=== PATIENT | female | born 1990 | race Caucasian/White ===

== ENCOUNTER → 2018-09-04 15:38 | Outpatient (CLI) | payer OTHER, SELFPAY ==
[2013-10-05 21:06] VITALS: BMI 25.6
[2018-09-04 17:32] LABS: Internal QC Validated? YES +Cl - CLEAR BKGD; Pregnancy, Urine Negative Negative
--- OUTSIDE RECORDS SUMMARY | 2018-10-17 14:19 | XMS RPT_ITS | Clinical Summary ---
:1990 Author Organization [facility], [facility] Address [facility] [place] [address] Phone Care Team Providers Name Role Phone Dossi DC, Waleska Griffith Unavailable Conditions or Problems Problem Name Problem Onset Status Entry Provider Comment Standard Annotate Code Date Date Description Segmental and [id number] Active Waleska B Segmental and somatic (SNOMED CT) / Dossi DC somatic dysfunction dysfunction of sacral region Segmental and [id number] Active Waleska B Segmental and somatic (SNOMED CT) / Dossi DC somatic dysfunction dysfunction of lumbar region Segmental and [id number] Active Waleska B Segmental and somatic (SNOMED CT) / Dossi DC somatic dysfunction dysfunction of thoracic region Lumbar [id number] Active Waleska B Lumbar radiculopathy (SNOMED CT) / Dossi DC radiculopathy , right Medications Medication Instructions Start Date Stop Date Generic Name NDC Provider Observed no known medications at Medications Administered No information available. Allergies, Adverse Reactions, Alerts Observed no known allergies at Results Date Name Value Unit Range Flag Description Office Visit: Spine Visit- Neck & LBP MEDS REVIEW Done Documentation of current medications (procedure) NKMED T Documentation of current medications (procedure) Plan of Care Type Date Detail Pending order Follow up Appt 2x/week Pending order Follow up Appt 2x/week Pending order Follow up Appt 2x/week Procedures Code Procedure Name Date Entry Date CPT-22604 Chiropractic manipulative treatment (CMT); spinal, 3-4 regions CPT-25623 Electrical stimulation (unattended) CPT-74904 Traction, mechanical CPT-39442 Chiropractic manipulative treatment (CMT); spinal, 3-4 regions CPT-04063 Electrical stimulation (unattended) CPT-96430 Traction, mechanical CPT-33956 Chiropractic manipulative treatment (CMT); spinal, 3-4 regions CPT-35454 Electrical stimulation (unattended) CPT-39729 Traction, mechanical CPT-75808 Chiropractic manipulative treatment (CMT); spinal, 3-4 regions CPT-12191 Electrical stimulation (unattended) CPT-06852 Traction, mechanical CPT-98836 Lumbosacral; minimum of 4 views (Global charge) Vital Signs No information available.
--- OUTSIDE RECORDS SUMMARY | 2018-10-17 14:19 | XMS RPT_ITS ---
:1990 Author Organization [facility] Care Team Providers Name Role Phone SUNITHA PEREZ (DAMASO) Attending Unavailable MICHELL SANTAMARIA Attending Unavailable Maya Ibarra PA-C Attending Unavailable Maya Ibarra PA-C Referring Unavailable Sierra Fang Primary Care Unavailable PROBLEMS PROBLEMS DATE TYPE CONDITION / CODE ATTENDING STATUS SOURCE 09/04/2018 Unknown L70.0 - Acne Maya Ibarra PA-C Active [place] [facility] / Community L70.0(ICD-10) Hospital Repository PROCEDURES PROCEDURES No Procedure Records FoundRESULTS RESULTS ,URINE Collected: 09/04/2018 Status: F Source: [place] 3:46 PM [facility] REPOSITORY TYPE CODE TESTS RESULT OUT OF REFERENCE UNITS RANGE LAB L400.8000 Negative Normal HCGUQUAL Negative Result Comment: Very dilute urine specimens, as indicated by a low specific gravity, may not contain sales representative trainee levels of hCG. If is still suspected, a first morning urine specimen should be collected 48 hours later and tested. Performed By: #### [id number] #### [facility] [address] [place], [address] Observed: 12/11/2017 Status: F Source: [place] URINE CULTURE 3:03 PM [facility] REPOSITORY Sp. Request/Comment: - Specimen received in preservative Culture Result - 10,000 - <50,000 CFU/ml Escherichia coli --> ABNORMAL ALERT ORGANISM: Escherichia coli METHOD: Minimum inhibitory concentration(Vitek) Antibiotic Interp ALBA Status Ampicillin RESISTANT >=32 F Gentamicin SUSCEPTIBLE <=1 F Trimeth sulfameth RESISTANT >=320 F Cefazolin SUSCEPTIBLE <=4 F CLSI breakpoints for therapy of uncomplicated UTI's due to E.coli, K.pneumoniae, and P.mirabilis were applied and may be used to predict the activity of oral agents(cefaclor, cefdinir, cefpodoxime, cefp rozil, cefuroxime, cephalexin, loracarbef). Ciprofloxacin SUSCEPTIBLE 0.5 F Nitrofurantoin SUSCEPTIBLE <=16 F Cefepime SUSCEPTIBLE <=1 F Piperacillin/Tazobac SUSCEPTIBLE <=4 F Ampicillin Sulbact SUSCEPTIBLE 4 F Ceftriaxone SUSCEPTIBLE <=1 F Meropenem SUSCEPTIBLE <=0.25 F Ertapenem SUSCEPTIBLE <=0.5 F Performed By: #### URCUL #### [facility] [address] [place], [place] [address] PROGRESS Observed: 12/11/2017 Status: COMPLETED Source: [place] 2:47 PM [facility] REPOSITORY HNO ID: [id number] Author: Bee Cervantes Service: (none) Author Type: Nurse Practitioner Type: Progress Notes Filed: 12/11/2017 3:37 PM Note Text: Subjective HPI HPI Kody Chaney is a 27 year old female who presents today for CC of urinary burning, frequency. This started 2 weeks ago. Has tried azo. Symptoms are worsened by nothing. Risk factors hx of uti. Denies possibility of being . Review of Systems Constitutional: Negative for chills, fever and weight loss. Respiratory: Negative for cough, shortness of breath and wheezing. Cardiovascular: Negative for chest pain and palpitations. Gastrointestinal: Negative for abdominal pain, blood in stool, constipation, diarrhea, heartburn, melena, nausea and vomiting. Genitourinary: Positive for dysuria, frequency and urgency. Negative for flank pain and hematuria. Musculoskeletal: Positive for myalgias. Objective Physical Exam Constitutional: She is well-developed, well-nourished, and in no distress. Non-toxic appearance. She does not have a sickly appearance. No distress. Cardiovascular: Normal rate, regular rhythm and normal heart sounds. Pulmonary/Chest: Effort normal and breath sounds normal. Abdominal: Soft. Normal appearance and bowel sounds are normal. There is no hepatosplenomegaly. There is no tenderness. There is no CVA tenderness. Skin: Skin is warm and dry. BP 120/74 Pulse 72 Temp 37.1 ?C (98.8 ?F) (Tympanic) Resp 16 Wt 70.8 kg (156 lb) BMI 28.53 kg/m2 .Patient presents with: Urinary Problem: urgency with a feeling of pressure X 2 weeks PAST MEDICAL HISTORY Diagnosis Date - PMH - PAST MEDICAL HISTORY OF Left ankle sprain in seventh grade. - PMH - PAST MEDICAL HISTORY OF Left wrist sprain in seventh grade. PAST SURGICAL HISTORY Procedure Laterality Date - NONE ALLERGIES Vicodin [Hydrocodone-Acetaminophen]; Metal [Other] MEDICATIONS sulfamethoxazole-trimethoprim (BACTRIM DS) 800-160 mg per tablet Take 1 tablet by mouth twice daily for 5 days. Drospirenone-Ethinyl Estradiol (LORYNA, 28,) 3-0.02 mg per tablet Take 1 tablet by mouth once daily. ibuprofen (MOTRIN) 800 mg tablet Take 1 tablet by mouth every 8 hours as needed for Pain. Take with food. fexofenadine (ZEV) 180 mg tablet Take 1 tablet by mouth once daily. LORATADINE (CLARITIN ORAL) Take by mouth. FAMILY HISTORY Problem Relation Age of Onset - Heart Maternal Grandmother - Stroke Maternal Grandmother - Emphysema Maternal Grandfather - Hypertension Maternal Grandfather - Lipids Maternal Grandfather - Brain Aneurysm [OTHER] Paternal Grandmother - Uterine Fibroids [OTHER] Mother - Diabetes Father - Hypertension Father - GI Father Social History Substance Use Topics - Smoking status: Never Smoker - Smokeless tobacco: Never Used - Alcohol use No ASSESSMENT/PLAN: 1. Urinary urgency - ICD9: 788.63, ICD10: R39.15 Ua pos for leuks,prot, hem Will treat with bactrim for 5 days, longer duration d/t s/s for 2 weeks - URINE CULTURE - UA DIP B/O - SULFAMETHOXAZOLE 800 MG-TRIMETHOPRIM 160 MG TABLET Prescription instructions reviewed with patient as applicable. Patient advised if symptoms do not improve or if symptoms worsen sooner, to contact the office for further evaluation by their primary care physician. Potential red flag symptoms discussed with the patient. Reviewed appropriate action plan to take if red flag symptoms occur. Patient agreeable to treatment plan. JASON Vann Observed: 12/11/2017 Status: COMPLETED Source: [place] 2:30 PM [facility] REPOSITORY Office Visit (WSTR) KODY CHANEY ([id number]) 1990 F Date Time Provider Department 12/11/17 2:30 PM BEE CERVANTES (JASON) [facility] During your visit today, we recorded the following information about you: Temperature Pulse Respiration Blood pressure 98.8 degrees 72/minute 16/minute 120/74 Weight 70.8 kg Bee Cervantes CNP 12/11/2017 3:37 PM Signed Subjective HPI HPI Kody Chaney is a 27 year old female who presents today for CC of urinary burning, frequency. This started 2 weeks ago. Has tried azo. Symptoms are worsened by nothing. Risk factors hx of uti. Denies possibility of being . Review of Systems Constitutional: Negative for chills, fever and weight loss. Respiratory: Negative for cough, shortness of breath and wheezing. Cardiovascular: Negative for chest pain and palpitations. Gastrointestinal: Negative for abdominal pain, blood in stool, constipation, diarrhea, heartburn, melena, nausea and vomiting. Genitourinary: Positive for dysuria, frequency and urgency. Negative for flank pain and hematuria. Musculoskeletal: Positive for myalgias. Objective Physical Exam Constitutional: She is well-developed, well-nourished, and in no distress. Non-toxic appearance. She does not have a sickly appearance. No distress. Cardiovascular: Normal rate, regular rhythm and normal heart sounds. Pulmonary/Chest: Effort normal and breath sounds normal. Abdominal: Soft. Normal appearance and bowel sounds are normal. There is no hepatosplenomegaly. There is no tenderness. There is no CVA tenderness. Skin: Skin is warm and dry. BP 120/74 Pulse 72 Temp 37.1 ?C (98.8 ?F) (Tympanic) Resp 16 Wt 70.8 kg (156 lb) BMI 28.53 kg/m2 .Patient presents with: Urinary Problem: urgency with a feeling of pressure X 2 weeks PAST MEDICAL HISTORY Diagnosis Date - PMH - PAST MEDICAL HISTORY OF Left ankle sprain in seventh grade. - PMH - PAST MEDICAL HISTORY OF Left wrist sprain in seventh grade. PAST SURGICAL HISTORY Procedure Laterality Date - NONE ALLERGIES Vicodin [Hydrocodone-Acetaminophen]; Metal [Other] MEDICATIONS sulfamethoxazole-trimethoprim (BACTRIM DS) 800-160 mg per tablet Take 1 tablet by mouth twice daily for 5 days. Drospirenone-Ethinyl Estradiol (LORYNA, 28,) 3-0.02 mg per tablet Take 1 tablet by mouth once daily. ibuprofen (MOTRIN) 800 mg tablet Take 1 tablet by mouth every 8 hours as needed for Pain. Take with food. fexofenadine (ZEV) 180 mg tablet Take 1 tablet by mouth once daily. LORATADINE (CLARITIN ORAL) Take by mouth. FAMILY HISTORY Problem Relation Age of Onset - Heart Maternal Grandmother - Stroke Maternal Grandmother - Emphysema Maternal Grandfather - Hypertension Maternal Grandfather - Lipids Maternal Grandfather - Brain Aneurysm [OTHER] Paternal Grandmother - Uterine Fibroids [OTHER] Mother - Diabetes Father - Hypertension Father - GI Father Social History Substance Use Topics - Smoking status: Never Smoker - Smokeless tobacco: Never Used - Alcohol use No ASSESSMENT/PLAN: 1. Urinary urgency - ICD9: 788.63, ICD10: R39.15 Ua pos for leuks,prot, hem Will treat with bactrim for 5 days, longer duration d/t s/s for 2 weeks - URINE CULTURE - UA DIP B/O - SULFAMETHOXAZOLE 800 MG-TRIMETHOPRIM 160 MG TABLET Prescription instructions reviewed with patient as applicable. Patient advised if symptoms do not improve or if symptoms worsen sooner, to contact the office for further evaluation by their primary care physician. Potential red flag symptoms discussed with the patient. Reviewed appropriate action plan to take if red flag symptoms occur. Patient agreeable to treatment plan. JASON Vann CNP 12/11/2017 3:04 PM Signed URINARY TRACT INFECTION GENERAL INFORMATION: A urinary tract infection (UTI) is an infection of the bladder or kidneys. A bladder infection, called cystitis, is the more common type. If the infection travels up to the kidneys, it is called pyelonephritis. This can be more serious. UTIs are a common problem in women. Having sexual relations can leave a woman more susceptible to developing a UTI, but it is not sexually transmitted like gonorrhea. Some women have a problem with recurrent UTIs. INSTRUCTIONS: 1. Your doctor prescribed an antibiotic to treat the UTI. Take exactly as directed. Be sure to take all the medication prescribed, even if your symptoms disappear. If you stop treatment early, the infection may not be fully treated and the symptoms could come back again. 2. Get plenty of rest. You may take acetaminophen for fever and aches. 3. Drink 6 to 8 glasses of fluids, especially water, every day. This helps wash out germs from your urinary tract. Cranberry juice or other sources of vitamin C are also good for you. 4. Urinate often, as soon as you feel the urge. Empty your bladder completely. Urinate before and after you have sex. 5. Always wipe from front to back after going to the bathroom. This pushes germs away from your bladder, rather than towards it. 6. Showers are better than baths, and you should wash the genital area daily. Avoid bubble bath or bath oils if you do take a bath. 7. Wear underwear and pantyhose with a cotton crotch. CONTACT YOUR DOCTOR: 1. You have a temperature over 102F (38.8C) after 48 hours on medication. 2. You notice blood in your urine. 3. Your symptoms don't improve in 2 days. 4. You develop nausea, vomiting, diarrhea, or a rash. 5. You develop new or unexplained symptoms. These may be related to the medication you are taking. 6. Your symptoms return after you finish treatment. RETURN TO THE EMERGENCY DEPARTMENT IF: You develop vomiting and can't keep your medication or fluids down. Referring Provider: SELF [200] Allergies As of Date: 12/11/2017 Noted Allergy Reaction VICODIN (HYDROCODONE-ACETAMINOPHE*06/30/2016 14 - Other: See Comments Comments: convulsions and gi problems metal [Other] 05/09/2008 2 - Rash Date Reviewed: 12/11/2017 Reviewed by: Bee Cervantes - Fully Assessed Reason for Visit: Urinary Problem [252] Cmt: urgency with a feeling of pressure X 2 weeks Primary Visit Diagnosis:Urinary urgency [R39.15] Order(s):URINE CULTURE [SQURCUL] Order #: [id number] UA DIP B/O [[id number]] Order #: [id number] sulfamethoxazole-trimethoprim (BACTRIM DS) 800-160 mg per tabletTake 1 tablet by mouth twice daily for 5 days.Disp: 10 tabletRfl: 0 Prescriptions as of 12/11/2017 Sig: SULFAMETHOXAZOLE 800 MG-TRIME* Take 1 tablet by mouth twice * DROSPIRENONE-ETHINYL ESTRADIO* Take 1 tablet by mouth once d* IBUPROFEN 800 MG TABLET Take 1 tablet by mouth every * FEXOFENADINE 180 MG TABLET Take 1 tablet by mouth once d* CLARITIN ORAL Take by mouth. Medication notes this encounter IBUPROFEN 800 MG TABLET >> Dasha Tee LPN 12/11/2017 2:35 PM >> DASHA TEE LPN [place] Dec 11, 2017 2:35 PM Not taking FEXOFENADINE 180 MG TABLET >> Dasha Tee ASSISTANT ADMINISTRATOR 12/11/2017 2:36 PM >> DASHA TEE LPN [place] Dec 11, 2017 2:36 PM Not taking CLARITIN ORAL >> Dasha Tee LPN 12/11/2017 2:35 PM >> DASHA TEE LPN [place] Dec 11, 2017 2:35 PM PRN Problem List As Of Date: 12/11/2017 (None) Other instructions from your clinician: URINARY TRACT INFECTION GENERAL INFORMATION: A urinary tract infection (UTI) is an infection of the bladder or kidneys. A bladder infection, called cystitis, is the more common type. If the infection travels up to the kidneys, it is called pyelonephritis. This can be more serious. UTIs are a common problem in women. Having sexual relations can leave a woman more susceptible to developing a UTI, but it is not sexually transmitted like gonorrhea. Some women have a problem with recurrent UTIs. INSTRUCTIONS: 1. Your doctor prescribed an antibiotic to treat the UTI. Take exactly as directed. Be sure to take all the medication prescribed, even if your symptoms disappear. If you stop treatment early, the infection may not be fully treated and the symptoms could come back again. 2. Get plenty of rest. You may take acetaminophen for fever and aches. 3. Drink 6 to 8 glasses of fluids, especially water, every day. This helps wash out germs from your urinary tract. Cranberry juice or other sources of vitamin C are also good for you. 4. Urinate often, as soon as you feel the urge. Empty your bladder completely. Urinate before and after you have sex. 5. Always wipe from front to back after going to the bathroom. This pushes germs away from your bladder, rather than towards it. 6. Showers are better than baths, and you should wash the genital area daily. Avoid bubble bath or bath oils if you do take a bath. 7. Wear underwear and pantyhose with a cotton crotch. CONTACT YOUR DOCTOR: 1. You have a temperature over 102F (38.8C) after 48 hours on medication. 2. You notice blood in your urine. 3. Your symptoms don't improve in 2 days. 4. You develop nausea, vomiting, diarrhea, or a rash. 5. You develop new or unexplained symptoms. These may be related to the medication you are taking. 6. Your symptoms return after you finish treatment. RETURN TO THE EMERGENCY DEPARTMENT IF: You develop vomiting and can't keep your medication or fluids down. Prescriptions ordered this encounter Disp Refills Start End SULFAMETHOXAZOLE 800 MG-TRIMETHOPRIM* 10 t* 0 12/11/2017 12/16/2017 Route: ORAL Sig: Take 1 tablet by mouth twice daily for 5 days. Encounter Status:Closed by BEE CERVANTES CNP on 12/11/17 PROGRESS Observed: 10/21/2017 Status: COMPLETED Source: [place] 4:06 PM [facility] REPOSITORY [facility] ID: [id number] Author: Michell Santamaria Service: (none) Author Type: Physician Type: Progress Notes Filed: 10/21/2017 4:38 PM Note Text: Reason for Visit Patient presents with: [facility] Kody Chaney is a 27 year old female who presents here today for Above Complaints.. Health Maintenance TETANUS HPI Recently she had some jaw trouble , unclear etiology, was on abx for a week and taking otc pain medication, It is better but still some pain present. From a 10 her pain is a 1/2. During last fall she had hives and welts and there really cause not determined but she is doing better now, no issue. Takes loryna well - takes it daily No problem-specific Assessment AND Plan notes found for this encounter. PAST MEDICAL HISTORY Diagnosis Date - PMH - PAST MEDICAL HISTORY OF Left ankle sprain in seventh grade. - PMH - PAST MEDICAL HISTORY OF Left wrist sprain in seventh grade. PAST SURGICAL HISTORY Procedure Laterality Date - NONE FAMILY HISTORY Problem Relation Age of Onset - Diabetes Father - Heart Maternal Grandmother - Emphysema Maternal Grandfather - Hypertension Maternal Grandfather - Lipids Maternal Grandfather - Hypertension Father - GI Father - Uterine Fibroids [Other] [OTHER] Mother - Stroke Maternal Grandmother - Brain Aneurysm [Other] [OTHER] Paternal Grandmother Social History Substance Use Topics - Smoking status: Never Smoker - Smokeless tobacco: Never Used - Alcohol use No Past medical history, appointments, medications, allergies reviewed. Pertinent Lab/Diagnostic Studies are reviewed and discussed today Current Outpatient Prescriptions: - amoxicillin-clavulanic acid (AUGMENTIN) 875-125 mg per tablet - ibuprofen (MOTRIN) 800 mg tablet - LORYNA, 28, 3-0.02 mg per tablet - LORATADINE (CLARITIN ORAL) - fexofenadine (ZEV) 180 mg tablet Review of Systems CONSTITUTIONAL: No fevers, chills night sweats, unintended weight loss CARDIOVASCULAR: No chest pain, dyspnea, palpitations, orthopnea, PND, ankle edema. PULM: No dyspnea, unexplained cough. GI: No dysphagia/odynophagia, problematic reflux, constipation, diarrhea, changes in stool habits, hematochezia, melena. : No new urinary complaints, including dysuria, gross hematuria or pyuria. NEURO: No new balance problems, peripheral weakness/paresthesias or numbness of concern. Physical Exam BP 110/70 Pulse 60 Resp 16 Ht 157.5 cm (5' 2) Wt 70.8 kg (156 lb) BMI 28.53 kg/m2 General appearance: Well appearing, alert, in no acute distress, well nourished. Skin: Skin color, texture, turgor normal, no suspicious rashes or lesions Head: Normocephalic, no masses, lesions, tenderness or abnormalities Ears: R TM - clear with good landmarks, erythematous, no mastoid tenderness, L TM - clear with good landmarks, nl light reflex, no mastoid tenderness Mouth : normal oropharyx and posterior pharynx, Masseter muscle seems a little more tense on the left than the right Eyes: Anicteric sclera. Pupils are equally round and reactive to light. Extraocular movements are intact. Lungs: Lungs clear to auscultation. No wheezing, rhonchi, rales Heart: RRR without murmur, gallop, or rubs. Extremities: No deformities, edema, skin discoloration, clubbing or cyanosis. Good capillary refill. ASSESSMENT/PLAN: 1. Jaw pain - ICD9: 784.92, ICD10: R68.84 Etiology unclear, does not seem infectious likely TMJ related to clenching, Masseter muscle seems a little more tense on the left than the right She is getting better, so complete abx course, to get back to me if she does not get better. MICHELL SANTAMARIA MD CNOV Observed: 10/21/2017 Status: COMPLETED Source: [place] 4:00 PM [facility] REPOSITORY Office Visit (INTMWS) HETALKODY ([id number]) 1990 F Date Time Provider Department 10/21/17 4:00 PM MICHELL SANTAMARIA INTM[facility] During your visit today, we recorded the following information about you: Pulse Respiration Blood pressure Weight 60/minute 16/minute 110/70 70.8 kg Height 1.575 m MICHELL SANTAMARIA MD 10/21/2017 4:38 PM Signed Reason for Visit Patient presents with: Establish Care Kody Chaney is a 27 year old female who presents here today for Above Complaints.. Health Maintenance TETANUS HPI Recently she had some jaw trouble , unclear etiology, was on abx for a week and taking otc pain medication, It is better but still some pain present. From a 10 her pain is a 1/2. During last fall she had hives and welts and there really cause not determined but she is doing better now, no issue. Takes loryna well - takes it daily No problem-specific Assessment ANDamp; Plan notes found for this encounter. PAST MEDICAL HISTORY Diagnosis Date - PMH - PAST MEDICAL HISTORY OF Left ankle sprain in seventh grade. - PMH - PAST MEDICAL HISTORY OF Left wrist sprain in seventh grade. PAST SURGICAL HISTORY Procedure Laterality Date - NONE FAMILY HISTORY Problem Relation Age of Onset - Diabetes Father - Heart Maternal Grandmother - Emphysema Maternal Grandfather - Hypertension Maternal Grandfather - Lipids Maternal Grandfather - Hypertension Father - GI Father - Uterine Fibroids [Other] [OTHER] Mother - Stroke Maternal Grandmother - Brain Aneurysm [Other] [OTHER] Paternal Grandmother Social History Substance Use Topics - Smoking status: Never Smoker - Smokeless tobacco: Never Used - Alcohol use No Past medical history, appointments, medications, allergies reviewed. Pertinent Lab/Diagnostic Studies are reviewed and discussed today Current Outpatient Prescriptions: - amoxicillin-clavulanic acid (AUGMENTIN) 875-125 mg per tablet - ibuprofen (MOTRIN) 800 mg tablet - LORYNA, 28, 3-0.02 mg per tablet - LORATADINE (CLARITIN ORAL) - fexofenadine (ZEV) 180 mg tablet Review of Systems CONSTITUTIONAL: No fevers, chills night sweats, unintended weight loss CARDIOVASCULAR: No chest pain, dyspnea, palpitations, orthopnea, PND, ankle edema. PULM: No dyspnea, unexplained cough. GI: No dysphagia/odynophagia, problematic reflux, constipation, diarrhea, changes in stool habits, hematochezia, melena. : No new urinary complaints, including dysuria, gross hematuria or pyuria. NEURO: No new balance problems, peripheral weakness/paresthesias or numbness of concern. Physical Exam BP 110/70 Pulse 60 Resp 16 Ht 157.5 cm (5' 2ANDquot;) Wt 70.8 kg (156 lb) BMI 28.53 kg/m2 General appearance: Well appearing, alert, in no acute distress, well nourished. Skin: Skin color, texture, turgor normal, no suspicious rashes or lesions Head: Normocephalic, no masses, lesions, tenderness or abnormalities Ears: R TM - clear with good landmarks, erythematous, no mastoid tenderness, L TM - clear with good landmarks, nl light reflex, no mastoid tenderness Mouth : normal oropharyx and posterior pharynx, Masseter muscle seems a little more tense on the left than the right Eyes: Anicteric sclera. Pupils are equally round and reactive to light. Extraocular movements are intact. Lungs: Lungs clear to auscultation. No wheezing, rhonchi, rales Heart: RRR without murmur, gallop, or rubs. Extremities: No deformities, edema, skin discoloration, clubbing or cyanosis. Good capillary refill. ASSESSMENT/PLAN: 1. Jaw pain - ICD9: 784.92, ICD10: R68.84 Etiology unclear, does not seem infectious likely TMJ related to clenching, Masseter muscle seems a little more tense on the left than the right She is getting better, so complete abx course, to get back to me if she does not get better. MICHELL SANTAMARIA MD Referring Provider: SELF [200] Allergies As of Date: 10/21/2017 Noted Allergy Reaction VICODIN (HYDROCODONE-ACETAMINOPHE*06/30/2016 14 - Other: See Comments Comments: convulsions and gi problems metal [Other] 05/09/2008 2 - Rash Date Reviewed: 10/21/2017 Reviewed by: Tami Sánchez Ma - Fully Assessed Reason for Visit: Establish Care [42] Primary Visit Diagnosis:Jaw pain [R68.84] Prescriptions as of 10/21/2017 Sig: AMOXICILLIN 875 MG-POTASSIUM * Take 1 tablet by mouth twice * IBUPROFEN 800 MG TABLET Take 1 tablet by mouth every * LORYNA (28) 3 MG-20 MCG TABLET TAKE 1 TABLET BY MOUTH ONCE D* CLARITIN ORAL Take by mouth. FEXOFENADINE 180 MG TABLET Take 1 tablet by mouth once d* Problem List As Of Date: 10/21/2017 (None) Encounter Status:Closed by MICHELL SANTAMARIA MD on 10/21/17 PROGRESS Observed: 10/14/2017 Status: COMPLETED Source: [place] 4:37 PM [facility] REPOSITORY [facility] ID: [id number] Author: Sunitha Perez Service: (none) Author Type: Physician Clinical Resource Nurse Type: Progress Notes Filed: 10/14/2017 6:25 PM Note Text: 10/14/2017 Patient presents with: Pain: Right jaw pain X 1 week SUBJECTIVE: This is a 27 year old that is here today for Complaint(s) of right side of the face/jaw pain x 1 week. She started valtrex left over in case it was shingles, and it has not helped. No dental pain. Pain is behind the last tooth on the bottom right side. No obvious swelling. No rash. Pain is constant. Denies fever/chills. PAST MEDICAL HISTORY Diagnosis Date - PMH - PAST MEDICAL HISTORY OF Left ankle sprain in seventh grade. - PMH - PAST MEDICAL HISTORY OF Left wrist sprain in seventh grade. ALLERGIES Vicodin [Hydrocodone-Acetaminophen]; Metal [Other] MEDICATIONS Current Outpatient Prescriptions: LORYNA, 28, 3-0.02 mg per tablet TAKE 1 TABLET BY MOUTH ONCE DAILY. fexofenadine (ZEV) 180 mg tablet Take 1 tablet by mouth once daily. LORATADINE (CLARITIN ORAL) Take by mouth. No current facility-administered medications for this visit. SOCIAL HISTORY Social History Marital status: Spouse name: Years of education: Number of children: 0 Occupational History Occupation Employer Comment Student [employer] Social History Main Topics Smoking status: Never Smoker Smokeless status: Never Used Alcohol use: No Drug use: No Sexual activity: Yes Partners with: Male control/protection: Condom REVIEW OF SYSTEMS All other reviewed and negative other than HPI. OBJECTIVE: BP 122/74 Pulse 78 Temp 37.3 ?C (99.2 ?F) (Tympanic) Resp 14 Wt 71.7 kg (158 lb) BMI 28.21 kg/m2 APPEARANCE Well appearing, alert, in no acute distress, well-hydrated, well nourished. THROAT normal, no erythema. + TTP along posterior jaw line and inside cheek. No obvious induration or fluctuance. NECK Supple, no adenopathy; thyroid symmetric, normal size, no bruits SKIN no rash FACE no pain noted with palpation of 7th CN. ASSESSMENT/PLAN: 1. Dental infection - ICD9: 522.4, ICD10: K04.7 F/u with dentist Reviewed red flags and when to seek care sooner. - AMOXICILLIN 875 MG-POTASSIUM CLAVULANATE 125 MG TABLET - IBUPROFEN 800 MG TABLET The patient indicates understanding of these issues and agrees with the plan. DAMASO BeltranOV Observed: 10/14/2017 Status: COMPLETED Source: [place] 4:15 PM [facility] REPOSITORY Office Visit (WSTR) KODY CHANEY ([id number]) 1990 F Date Time Provider Department 10/14/17 4:15 PM SUNITHA PEREZ) [facility] During your visit today, we recorded the following information about you: Temperature Pulse Respiration Blood pressure 99.2 degrees 78/minute 14/minute 122/74 Weight 71.7 kg Sunitha Perez PA-C 10/14/2017 6:25 PM Addendum 10/14/2017 Patient presents with: Pain: Right jaw pain X 1 week SUBJECTIVE: This is a 27 year old that is here today for Complaint(s) of right side of the face/jaw pain x 1 week. She started valtrex left over in case it was shingles, and it has not helped. No dental pain. Pain is behind the last tooth on the bottom right side. No obvious swelling. No rash. Pain is constant. Denies fever/chills. PAST MEDICAL HISTORY Diagnosis Date - PMH - PAST MEDICAL HISTORY OF Left ankle sprain in seventh grade. - PMH - PAST MEDICAL HISTORY OF Left wrist sprain in seventh grade. ALLERGIES Vicodin [Hydrocodone-Acetaminophen]; Metal [Other] MEDICATIONS Current Outpatient Prescriptions: LORYNA, 28, 3-0.02 mg per tablet TAKE 1 TABLET BY MOUTH ONCE DAILY. fexofenadine (ZEV) 180 mg tablet Take 1 tablet by mouth once daily. LORATADINE (CLARITIN ORAL) Take by mouth. No current facility-administered medications for this visit. SOCIAL HISTORY Social History Marital status: Spouse name: Years of education: Number of children: 0 Occupational History Occupation Employer Comment Student [employer] Social History Main Topics Smoking status: Never Smoker Smokeless status: Never Used Alcohol use: No Drug use: No Sexual activity: Yes Partners with: Male control/protection: Condom REVIEW OF SYSTEMS All other reviewed and negative other than HPI. OBJECTIVE: BP 122/74 Pulse 78 Temp 37.3 ?C (99.2 ?F) (Tympanic) Resp 14 Wt 71.7 kg (158 lb) BMI 28.21 kg/m2 APPEARANCE Well appearing, alert, in no acute distress, well- hydrated, well nourished. THROAT normal, no erythema. + TTP along posterior jaw line and inside cheek. No obvious induration or fluctuance. NECK Supple, no adenopathy; thyroid symmetric, normal size, no bruits SKIN no rash FACE no pain noted with palpation of 7th CN. ASSESSMENT/PLAN: 1. Dental infection - ICD9: 522.4, ICD10: K04.7 F/u with dentist Reviewed red flags and when to seek care sooner. - AMOXICILLIN 875 MG-POTASSIUM CLAVULANATE 125 MG TABLET - IBUPROFEN 800 MG TABLET The patient indicates understanding of these issues and agrees with the plan. Sunitha Perez PA-C Referring Provider: SELF [200] Allergies As of Date: 10/14/2017 Noted Allergy Reaction VICODIN (HYDROCODONE-ACETAMINOPHE*06/30/2016 14 - Other: See Comments Comments: convulsions and gi problems metal [Other] 05/09/2008 2 - Rash Date Reviewed: 10/14/2017 Reviewed by: Dasha Tee LPN - Fully Assessed Reason for Visit: Pain [78] Cmt: Right jaw pain X 1 week Primary Visit Diagnosis:Dental infection [K04.7] Order(s):amoxicillin-clavulanic acid (AUGMENTIN) 875-125 mg per tabletTake 1 tablet by mouth twice daily for 10 days.Disp: 20 tabletRfl: 0 ibuprofen (MOTRIN) 800 mg tabletTake 1 tablet by mouth every 8 hours as needed for Pain. Take with food.Disp: 30 tabletRfl: 0 Prescriptions as of 10/14/2017 Sig: LORYNA (28) 3 MG-20 MCG TABLET TAKE 1 TABLET BY MOUTH ONCE D* FEXOFENADINE 180 MG TABLET Take 1 tablet by mouth once d* CLARITIN ORAL Take by mouth. AMOXICILLIN 875 MG-POTASSIUM * Take 1 tablet by mouth twice * IBUPROFEN 800 MG TABLET Take 1 tablet by mouth every * Problem List As Of Date: 10/14/2017 (None) Prescriptions ordered this encounter Disp Refills Start End AMOXICILLIN 875 MG-POTASSIUM CLAVULA* 20 t* 0 10/14/2017 10/24/2017 Route: ORAL Sig: Take 1 tablet by mouth twice daily for 10 days. IBUPROFEN 800 MG TABLET 30 t* 0 10/14/2017 Route: ORAL Sig: Take 1 tablet by mouth every 8 hours as needed for Pain. Take with food. Encounter Status:Closed by SUNITHA PEREZ PA-C on 10/14/17 ALLERGIES ALLERGIES DATE TYPE / CODE NAME / CODE REACTION SEVERITY SOURCE 06/30/2016 DRUG/[id number](SNOM HYDROCODONE OTHER: SEE C [facility] ED CT) -ACETAMINOP [place] HEN Repository 10/05/2013 Drug No Known Unknown [place] Allergy/224060233(S Allergies/F Community NOMED CT) [id number](R Hospital XNORM) Repository 05/09/2008 Miscellaneous OTHER RASH [facility] Allergy/886806559(S [place] NOMED CT) Repository ENCOUNTERS ENCOUNTERS ADMIT/DISCHARGE ACCOUNT ADMITTING ENCOUNTER LOCATION SOURCE NUMBER CLASS 09/04/2018 [id number] [facility] ing:MTLAB Repository 12/11/2017/12/13/19 [id number] Ambulatory [address] Repository 10/21/2017/10/24/19 [id number] Ambulatory [address] Repository 10/14/2017/10/14/19 [id number] Ambulatory [address] Repository PAYERS PAYERS ENCOUNTER GUARANTOR PAYER SUBSCRIBER SOURCE 09/04/2018 KODY Sarabia Primary KODY [place] [address] Insurance:AULTCAREPol GADEMERDOB: [facility] norma BONNER [facility]: [id number] [id number]: [id number] Repository e Date:[id number] () [address] [place] [address]ED: 09/04/2018 Secondary NOT GIVENUNK Niesha Insurance:SELF PAY [facility] Number: Effective Repository Date:2018-09-04
--- OUTSIDE RECORDS SUMMARY | 2018-10-17 14:19 | XMS RPT_ITS | Clinical Summary ---
:1990 Author Organization Formerly [facility], [facility] Address [facility] [place] [address] Phone Care Team Providers Name Role Phone Garry STRE[address], Waleksa Griffith Unavailable Conditions or Problems Problem Name Problem Onset Status Entry Provider Comment Standard Annotate Code Date Date Description Segmental and [id number] Active Waleska Griffith Segmental and somatic (SNOMED CT) / Dossi DC somatic dysfunction dysfunction of sacral region Segmental and 671074593 2017/08 Active Waleska B Segmental and somatic (SNOMED CT) / Dossi DC somatic dysfunction dysfunction of lumbar region Segmental and 411130805 2017/08 Active Waleska B Segmental and somatic (SNOMED CT) / Dossi DC somatic dysfunction dysfunction of thoracic region Lumbar 556550399 Active Waleska B Lumbar radiculopathy (SNOMED CT) [...] (procedure) Plan of Care Type Date Detail Appointment 08:30 AM Waleska Castañeda DC, [facility], [place], [phone], Pending order Follow up Appt 2x/week Pending order Follow up Appt 2x/week Pending order Follow up Appt 2x/week Procedures Code Procedure Name Date Entry Date CPT-33406 Chiropractic manipulative treatment (CMT); spinal, 3-4 regions CPT-97322 Electrical stimulation (unattended) CPT-48820 Traction, mechanical CPT-99318 Chiropractic manipulative treatment (CMT); spinal, 3-4 regions CPT-17568 Electrical stimulation (unattended) CPT-06009 Traction, mechanical CPT-40020 Chiropractic manipulative treatment (CMT); spinal, 3-4 regions CPT-36738 Electrical stimulation (unattended) CPT-99393 Traction, mechanical CPT-17235 Lumbosacral; minimum of 4 views (Global charge) Vital Signs No information available.
--- OUTSIDE RECORDS SUMMARY | 2018-10-17 14:19 | XMS RPT_ITS | Clinical Summary ---
:1990 Author Organization Formerly [facility], [facility] Address [facility] [place] [address] Phone Care Team Providers Name Role Phone Garry STRE[address], Waleska Griffith Unavailable Conditions or Problems Problem Name Problem Onset Status Entry Provider Comment Standard Annotate Code Date Date Description Segmental and 632526516 Active Waleska Griffith Segmental and somatic (SNOMED CT) / Dossi DC somatic dysfunction dysfunction of sacral region Segmental and 383713598 2017/08 Active Waleska B Segmental and somatic (SNOMED CT) / Dossi DC somatic dysfunction dysfunction of lumbar region Segmental and 651281668 2017/08 Active Waleska B Segmental and somatic (SNOMED CT) / Dossi DC somatic dysfunction dysfunction of thoracic region Lumbar 965826494 Active Waleska B Lumbar radiculopathy (SNOMED CT) [...] Detail Appointment 08:30 AM Waleska Castañeda DC, [facility], [place], [phone], Pending order Follow up Appt 2x/week Pending order Follow up Appt 2x/week Pending order Follow up Appt 2x/week Procedures Code Procedure Name Date Entry Date CPT-12296 Chiropractic manipulative treatment (CMT); spinal, 3-4 regions CPT-14545 Electrical stimulation (unattended) CPT-17329 Traction, mechanical CPT-22231 Chiropractic manipulative treatment (CMT); spinal, 3-4 regions CPT-78841 Electrical stimulation (unattended) CPT-95858 Traction, mechanical CPT-62071 Chiropractic manipulative treatment (CMT); spinal, 3-4 regions CPT-38761 Electrical stimulation (unattended) CPT-12469 Traction, mechanical CPT-27616 Chiropractic manipulative treatment (CMT); spinal, 3-4 regions CPT-87198 Electrical stimulation (unattended) CPT-76559 Traction, mechanical CPT-20689 Lumbosacral; minimum of 4 views (Global charge) Vital Signs No information available.
--- OUTSIDE RECORDS SUMMARY | 2018-10-17 14:19 | XMS RPT_ITS | Clinical Summary ---
:1990 Author Organization Formerly [facility], [facility] Address [facility] [place] [address] Phone Care Team Providers Name Role Phone Dossi DC, Waleska Griffith Unavailable Conditions or Problems Problem Name Problem Onset Status Entry Provider Comment Standard Annotate Code Date Date Description Segmental and 806768376 Active Waleska B Segmental and somatic (SNOMED CT) / Dossi DC somatic dysfunction dysfunction of sacral region Segmental and 609219313 Active Waleska B Segmental and somatic (SNOMED CT) / Dossi DC somatic dysfunction dysfunction of lumbar region Segmental and 004443250 Active Waleska B Segmental and somatic (SNOMED CT) / Dossi DC somatic dysfunction dysfunction of thoracic region Lumbar 957031072 Active Waleska B Lumbar radiculopathy (SNOMED CT) [...] Procedures Code Procedure Name Date Entry Date CPT-85064 Chiropractic manipulative treatment (CMT); spinal, 3-4 regions CPT-04852 Electrical stimulation (unattended) CPT-04547 Traction, mechanical CPT-75972 Chiropractic manipulative treatment (CMT); spinal, 3-4 regions CPT-53563 Electrical stimulation (unattended) CPT-81075 Traction, mechanical CPT-56769 Chiropractic manipulative treatment (CMT); spinal, 3-4 regions CPT-02361 Electrical stimulation (unattended) CPT-08778 Traction, mechanical CPT-01147 Chiropractic manipulative treatment (CMT); spinal, 3-4 regions CPT-08370 Electrical stimulation (unattended) CPT-04250 Traction, mechanical CPT-04873 Lumbosacral; minimum of 4 views (Global charge) Vital Signs No information available.
--- OUTSIDE RECORDS SUMMARY | 2018-10-17 14:19 | XMS RPT_ITS | Clinical Summary ---
:1990 Author Organization [facility], [facility] Address [facility] [place] [address] Phone Care Team Providers Name Role Phone Waleska Castañeda DC Unavailable Conditions or Problems Problem Name Problem Onset Status Entry Provider Comment Standard Annotate Code Date Date Description Segmental and 483969399 Active Waleska B Segmental and somatic (SNOMED CT) / Dossi DC somatic dysfunction dysfunction of sacral region Segmental and 443767487 Active Waleska B Segmental and somatic (SNOMED CT) / Dossi DC somatic dysfunction dysfunction of lumbar region Segmental and 029645028 Active Waleska B Segmental and somatic (SNOMED CT) / Dossi DC somatic dysfunction dysfunction of thoracic region Lumbar 095671518 Active Waleska B Lumbar radiculopathy (SNOMED CT) [...] Plan of Care Type Date Detail Appointment 10:30 AM Waleska Castañeda DC, [address] [place] [address], [phone], Appointment 08:30 AM Waleska Castañeda DC, [address] [place] [address], [phone], Pending order Follow up Appt 2x/week Pending order Follow up Appt 2x/week Pending order Follow up Appt 2x/week Procedures Code Procedure Name Date Entry Date CPT-81957 Chiropractic manipulative treatment (CMT); spinal, 3-4 regions CPT-84787 Electrical stimulation (unattended) CPT-19465 Traction, mechanical CPT-40143 Chiropractic manipulative treatment (CMT); spinal, 3-4 regions CPT-04891 Electrical stimulation (unattended) CPT-77246 Traction, mechanical CPT-06858 Chiropractic manipulative treatment (CMT); spinal, 3-4 regions CPT-97286 Electrical stimulation (unattended) CPT-13529 Traction, mechanical CPT-74689 Lumbosacral; minimum of 4 views (Global charge) Vital Signs No information available.
--- OUTSIDE RECORDS SUMMARY | 2018-10-17 14:19 | XMS RPT_ITS | Clinical Summary ---
:1990 Author Organization [facility], [facility] Address [address] [place] [address] Phone Care Team Providers Name Role Phone Garry STREET, Waleska Griffith Unavailable Conditions or Problems Problem Name Problem Onset Status Entry Provider Comment Standard Annotate Code Date Date Description Segmental and 438571870 Active Waleska B Segmental and somatic (SNOMED CT) / Dossi DC somatic dysfunction dysfunction of sacral region Segmental and 798000565 2017/08 Active Waleska B Segmental and somatic (SNOMED CT) / Dossi DC somatic dysfunction dysfunction of lumbar region Segmental and 995507090 Active Waleska B Segmental and somatic (SNOMED CT) / Dossi DC somatic dysfunction dysfunction of thoracic region Lumbar 408796319 Active Waleska B Lumbar radiculopathy (SNOMED CT) / Dossi DC radiculopathy , right Medications Medication Instructions Start Date Stop Date Generic Name NDC Provider Observed no known medications at Medications Administered No information available. Allergies, Adverse Reactions, Alerts Observed no known allergies at Results Date Name Value Unit Range Flag Description Office Visit: Spine Visit- Upper back pain MEDS REVIEW Done Documentation of current medications (procedure) NKMED T Documentation of current medications (procedure) Plan of Care Type Date Detail Appointment 09:30 AM Waleska Castañeda DC, [address] [place] [address], [phone], Appointment 08:30 AM Waleska Castañeda DC, [address] [place] [address], [phone], Appointment 10:30 AM Waleska Castañeda DC, [address] [place] [address], [phone], Appointment 08:30 AM Waleska Castañeda DC, [address] [place] [address], [phone], Pending order Follow up Appt 2x/week Procedures Code Procedure Name Date Entry Date CPT-80999 Chiropractic manipulative treatment (CMT); spinal, 3-4 regions CPT-66106 Electrical stimulation (unattended) CPT-60565 Traction, mechanical CPT-21342 Lumbosacral; minimum of 4 views (Global charge) Vital Signs No information available.
--- OUTSIDE RECORDS SUMMARY | 2018-10-17 14:19 | XMS RPT_ITS | Clinical Summary ---
:1990 Author Organization [facility], [facility] Address [facility] [place] [address] Phone Care Team Providers Name Role Phone Garry STRE[address], Waleska Griffith Unavailable Conditions or Problems Problem Name Problem Onset Status Entry Provider Comment Standard Annotate Code Date Date Description Segmental and 157695730 Active Waleska B Segmental and somatic (SNOMED CT) / Dossi DC somatic dysfunction dysfunction of sacral region Segmental and 299373144 2017/08 Active Waleska B Segmental and somatic (SNOMED CT) / Dossi DC somatic dysfunction dysfunction of lumbar region Segmental and 072187873 Active Waleska B Segmental and somatic (SNOMED CT) / Dossi DC somatic dysfunction dysfunction of thoracic region Lumbar 249305563 Active Waleska B Lumbar radiculopathy (SNOMED CT) [...] Detail Appointment 08:30 AM Waleska Castañeda DC, [address] [place] [address], [phone], Appointment 10:30 AM Waleska Castañeda DC, [address] [place] [address], [phone], Appointment 08:30 AM Waleska Castañeda DC, [address] [place] [address], [phone], Pending order Follow up Appt 2x/week Pending order Follow up Appt 2x/week Procedures Code Procedure Name Date Entry Date CPT-74784 Chiropractic manipulative treatment (CMT); spinal, 3-4 regions CPT-43379 Electrical stimulation (unattended) CPT-86758 Traction, mechanical CPT-35632 Chiropractic manipulative treatment (CMT); spinal, 3-4 regions CPT-11525 Electrical stimulation (unattended) CPT-99941 Traction, mechanical CPT-68128 Lumbosacral; minimum of 4 views (Global charge) Vital Signs No information available.
--- OUTSIDE RECORDS SUMMARY | 2018-10-17 14:19 | XMS RPT_ITS | Clinical Summary ---
:1990 Author Organization [facility], [facility] Address [address] [place] [address] Phone Care Team Providers Name Role Phone Zara Dinero Unavailable Unavailable Conditions or Problems Problem Name Problem Onset Status Entry Provider Comment Standard Annotate Code Date Date Description Segmental and 479113083 Active Waleska Nacho Segmental and somatic (SNOMED CT) / Dossi DC somatic dysfunction dysfunction of sacral region Segmental and 578792899 Active Waleska B Segmental and somatic (SNOMED CT) / Dossi DC somatic dysfunction dysfunction of lumbar region Segmental and 125694012 Active Waleska B Segmental and somatic (SNOMED CT) / Dossi DC somatic dysfunction dysfunction of thoracic region Lumbar 605579151 Active Waleska B Lumbar radiculopathy (SNOMED CT) / Dossi DC radiculopathy , right Medications No information available. Medications Administered No information available. Allergies, Adverse Reactions, Alerts No information available. Results No information available. Plan of Care Type Date Detail Appointment 09:30 AM Waleska Castañeda DC, [address] [place] [address], [phone], Procedures Code Procedure Name Date Entry Date CPT-01792 Lumbosacral; minimum of 4 views (Global charge) Vital Signs No information available.
== END ==
PROVIDERS: Family Provider Family Medicine; PCP Family Medicine; Referring Provider Physician Assistant; Visit Provider Physician Assistant
DX: L70.0 Acne vulgaris (principal)
CPT/HCPCS: 81025

== ENCOUNTER → 2018-10-09 17:28 | Outpatient (CLI) | payer OTHER, SELFPAY ==
[2018-10-09 19:32] LABS: Neisserai gonorrhoeae by PCR Negative (Negative); Probe Check PASS
[2018-10-09 19:33] LABS: Chlamydia Trachomatis by PCR Negative (Negative); Sample Adequacy Control PASS; Specimen Processing Control PASS
[2018-10-16 08:13] LABS: HPV APTIMA, High Risk Positive (Negative)
[2018-10-16 08:14] LABS: HPV Reflexed? NOT INDICATED
== END ==
PROVIDERS: Family Provider Family Medicine; PCP Family Medicine; Referring Provider Obstetrics & Gynecology; Visit Provider Obstetrics & Gynecology
DX: Z11.3 Encounter for screening for infections with a predominantly sexual mode of transmission (principal); Z12.4 Encounter for screening for malignant neoplasm of cervix
CPT/HCPCS: 87491; 87591; 87624; 88175; G0145

== ENCOUNTER → 2018-10-16 15:50 | Outpatient (CLI) | payer OTHER, SELFPAY ==
[2013-10-05 21:06] VITALS: BMI 25.6
[2018-10-16 18:20] LABS: Internal QC Validated? YES +Cl - CLEAR BKGD; Pregnancy, Urine Negative Negative
[2018-11-17 10:14] LABS: Absolute Lymphocyte Count 1.39 X10^3/ul (0.83-4.51); Absolute Neutrophil Count 3.5 X10^3/uL (2.0-7.7); Basophil# 0.03 X10^3/uL; Basophil% 0.5 % (0-1); Eosinophil# 0.25 X10^3/uL; Eosinophils% 4.4 % (0-5); Hematocrit 40.2 % (37-47); Hemoglobin 13.1 g/dl (12.0-15.0); Lymphocyte # 1.39 X10^3/ul (4.0); Lymphocyte % 24.3 % (19-41); Mean Corp Hgb Conc 32.6 g/gl (32-36); Mean Corpuscular Hgb 29.5 pg (27.0-32.0); Mean Corpuscular Volume 90.5 fL (81-99); Mean Platelet Vol. 12.2 fl (6.2-12.0); Monocyte# 0.56 X10^3/uL; Monocyte% 9.8 % (0-10); Platelet Count 243 K/mm3 (150-450); RBC Distribution Width CV 12.7 % (11.6-14.6); RBC Distribution Width SD 42.3 fl (35.1-43.9); Red Blood Count 4.44 M/mm3 (4.2-5.4); White Blood Count 5.7 K/mm3 (4.4-11.0)
[2018-11-17 10:17] LABS: POSITIVE COUNT NO; POSITIVE DIFFERENTIAL NO; POSITIVE MORPHOLOGY NO
[2018-11-17 10:51] LABS: ALB/GLOB Ratio 0.7 RATIO (0.9-2.4); AST(SGOT) 17 U/L (15-37); Alanine Aminotransfer ALT/SGPT 28 U/L (13-56); Albumin, Serum 3.3 g/dL (3.2-5.0); Alkaline Phosphatase 74 U/L (45-117); Anion Gap 11 (5-15); BUN 14 mg/dL (7-18); BUN/Creat Ratio 17.3 RATIO (10-20); Calcium,Total 8.6 mg/dL (8.5-10.1); Chloride 107 mmol/L (98-107); Cholesterol 142 mg/dL (200); Creatinine, Serum 0.81 mg/dL (0.55-1.02); EST Glomerular Filtration Rate 89 mL/min (>60); Est Glom Filt Rate - Afr Amer 108 mL/min (>60); Globulin 4.5 g/dL (2.2-4.2); Glucose 79 mg/dL (74-106); High Density Lipoprotein 43 mg/dL; Potassium 4.3 mmol/L (3.5-5.1); Protein, Total 7.8 g/dL (6.4-8.2); Sodium Level 142 mmol/L (136-145); T4 Free Direct 0.98 ng/dL (0.76-1.46); Thyroid Stim Hormone (TSH) 2.37 uIU/mL (0.358-3.74); Triglycerides 89 mg/dL; Very Low Density Lipoprotein 18 mg/dL (5-40)
== END ==
PROVIDERS: Referring Provider Physician Assistant; Visit Provider Physician Assistant
DX: L70.0 Acne vulgaris (principal)
CPT/HCPCS: 80053; 80061; 81025; 84439; 84443; 85025

== ENCOUNTER → 2018-10-27 16:34 | Outpatient (CLI) | payer OTHER, SELFPAY ==
[2013-10-05 21:06] VITALS: BMI 25.6
--- NOTE | 2018-10-27 | CER_PTH ---
PATIENT: KODY EARL LOC: BG U#:[id number] AGE/SX: 35/F ROOM: RE10/27/[address]: Dr. Beba Ramirez MD : 1990 BED: DIS: SPEC #: [id number] RECD: 10/27/18 16:07 STATUS: CLEMENT VIANNEY #: [id number] BRIAN: 10/27/18 00:[address]: Beba Up DEPT: SURGICAL PATHOLOGY RECD BY: Adonay Bhatia ENTERED: 10/30/18 10:20 SP TYPE: CERV OTHR DR: Dr. Waleska Torres DO Tissues: A - Uterine cervix, NOS B - Uterine cervix, NOS C - Endocervical Procedures: Surgery Specimen Level IV HEADER OPERATION: Colposcopy PRE-OP DIAGNOSIS: ASCUS +HPV, LMP 10/02/18, PAP 10/09/18 TISSUE SUBMITTED: A. Cervical biopsy at 3 o'clock, B. Cervical biopsy at 12 o'clock, C. ECC MICROSCOPIC DIAGNOSIS A. Cervix at 3 o'clock, biopsy: Consistent with focal HPV change. Mild chronic inflammation. See comment. B. Cervix at 12 o'clock, biopsy: Consistent with focal HPV change. Mild chronic inflammation. See comment. C. 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 Endocervix with squamous metaplasia. See comment. AM:arcadio 10/31/18 COMMENT A-C. Results from immunohistochemistry ([id number]) for surrogate HPV marker (p16) will be reported separately. MICROSCOPIC DESCRIPTION Slides are reviewed. GROSS DESCRIPTION A - Received in fixative is one container labeled with the patient's name and designated cervical biopsy at 3 o'clock. The specimen consists of one irregular fragment of light lala soft tissue that measures 0.3 x 0.3 x 0.1 cm. The specimen is totally submitted in one cassette. B - Received in fixative is one container labeled with the patient's name and designated cervical biopsy at 12 o'clock. The specimen consists of one irregular fragment of light lala soft tissue that measures 0.2 x 0.2 x 0.1 cm. The specimen is totally submitted in one cassette. C - Received in fixative is one container labeled with the patient's name and designated ECC. The specimen consists of multiple minute fragments of mucoid material measuring 1 x 0.5 x <0.1 cm. The specimen is totally submitted in one cassette. / AM:arcadio 10/30/18 TC:0 CPT: 44428 x3
--- NOTE | 2018-10-27 | IMM_PTH ---
PATIENT: KODY EARL LOC: BG U#:[id number] AGE/SX: 35/F ROOM: RE10/27/[address]: Dr. Beba Ramirez MD : 1990 BED: DIS: SPEC #: [id number] RECD: 10/31/18 13:18 STATUS: CLEMENT REMassiel #: [id number] BRIAN: 10/27/18 00:[address]: Beba Up DEPT: IMMUNOHISTOCHEMISTRY RECD BY: Eula Mojica ENTERED: 10/31/18 13:23 SP TYPE: IMMUNO OTHR DR: Dr. Wlaeska Torres, DO Tissues: A - Uterine cervix, NOS B - Uterine cervix, NOS C - Endocervical Procedures: p16 (initial) KI-67 (add) PHYSICIAN & INSTITUTION [place] [address] SPECIMEN INFORMATION: Tissue Source: A - Cervix at 3 o'clock, B - Cervix at 12 o'clock, C - [facility] Clinical Info: ASCUS, positive HPV Specimen Number: [id number] A-C CPT code: 12423 x3, 00807 x3 METHODOLOGY: Deparaffinized sections of prefer/formalin-fixed tissue or PAP/DQ stained slides are incubated with monoclonal/polyclonal antibodies/oligonucleotide probes. Localization is made via biotin free immunoperoxidase method. Appropriate controls are performed and reacted as expected. Results on target cell population are indicated in the following table: RESULTS: ANTIBODY / CLONE RESULT Block A P16 (E6H4) negative Ki-67 (30-9) positive, low Block B P16 (E6H4) negative Ki-67 (30-9) positive, low Block C P16 (E6H4) positive, patchy Ki-67 (30-9) positive, moderate These tests were developed and their performance characteristics determined by [facility]. They may not have been cleared or approved by the U.S. Food and Drug Administration. The FDA has determined that such clearance or approval is not necessary. INTERPRETATION: A. Cervix, 3 o'clock, biopsy: Consistent with focal HPV change. B. Cervix, 12 o'clock, biopsy: Consistent with focal HPV change. C. Endocervix, curettage: Consistent with mild to moderate squamous dysplasia, MEREDITH I-II (HSIL). AM:arcadio 11/01/18
--- OUTSIDE RECORDS SUMMARY | 2019-01-01 07:57 | XMS RPT_ITS ---
:1990 Author Organization OHIP Care Team Providers Name Role Phone Beba Geronimo Attending Unavailable Sierra Fang Primary Care Unavailable Beba Geronimo Referring Unavailable Maya Ibarra PA-C Attending Unavailable Maya Ibarra PA-C Referring Unavailable Waleska Torres Primary Care Unavailable Maya Ibarra PA-C Attending Unavailable Waleska Torres Primary Care Unavailable Beba Geronimo Attending Unavailable eBba Geronimo Referring Unavailable Waleska Torres Primary Care Unavailable Maya Ibarra PA-C Attending Unavailable Maya IbarraC Referring Unavailable Sierra Fang Primary Care Unavailable PROBLEMS PROBLEMS DATE TYPE CONDITION / CODE ATTENDING STATUS SOURCE 10/16/2018 Unknown L70.0 - Acne Maya Ibarra PA-C Active [place] vulgaris / Community L70.0(ICD-10) Hospital Repository 10/11/2018 Unknown Z11.3 - Encounter Grazyna, Active [place] for screening for [facility] infections with a Hospital predominantly Repository sexual mode of transmission / Z11.3(ICD-10) 10/11/2018 Unknown Z12.4 - Encounter Grazyna, Active Niesha for screening for [facility] malignant neoplasm Hospital of cervix / Repository Z12.4(ICD-10) 10/11/2018 Unknown Z01.419 - Encounter Grazyna, Active Niesha for gynecological [facility] (general) (routine) Repository without abnormal findings / Z01.419(ICD-10) PROCEDURES PROCEDURES No Procedure Records FoundRESULTS RESULTS CERVICAL Observed: 10/27/2018 Status: F Source: [place] 12:00 AM [facility] [place] REPOSITORY Patient: KODY CHANEY : 1990 (28/) Acct Num: [id number] Phys: Grazyna RUIZ,Summer Unit Num: [id number] Loc: LABSPEC Specimen: [id number] Received: 10/27/181606 Spec Type: CERV TISSUES 1 TISSUES: A. Uterine cervix, NOS B. Uterine cervix, NOS C. Endocervical COMMENT A-C. Results from immunohistochemistry ([id number]) for surrogate HPV marker (p16) will be reported separately. GROSS DESCRIPTION A - Received in fixative is one container labeled with the patient's name and designated cervical biopsy at 3 o'clock. The specimen consists of one irregular fragment of light lala soft tissue that measures 0.3 x 0.3 x 0.1 cm. The specimen is totally submitted in one cassette. B - Received in fixative is one container labeled with the patient's name and designated cervical biopsy at 12 o'clock. The specimen consists of one irregular fragment of light lala soft tissue that measures 0.2 x 0.2 x 0.1 cm. The specimen is totally submitted in one cassette. C - Received in fixative is one container labeled with the patient's name and designated ECC. The specimen consists of multiple minute fragments of mucoid material measuring 1 x 0.5 x <0.1 cm. The specimen is totally submitted in one cassette. / AM:rg 10/30/18 TC:0 CPT: 56750 x3 HEADER OPERATION: Colposcopy PRE-OP DIAGNOSIS: ASCUS +HPV, LMP 10/02/18, PAP 10/09/18 TISSUE SUBMITTED: A. Cervical biopsy at 3 o'clock, B. Cervical biopsy at 12 o' clock, C. ECC MICROSCOPIC DESCRIPTION Slides are reviewed. MICROSCOPIC DIAGNOSIS A. Cervix at 3 o'clock, biopsy: Consistent with focal HPV change. Mild chronic inflammation. See comment. B. Cervix at 12 o'clock, biopsy: Consistent with focal HPV change. Mild chronic inflammation. See comment. C. 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 Endocervix with squamous metaplasia. See comment. AM:rg 10/31/18 Signed Sae Moya, 10/31/18 <signature on file> Performed By: #### PCER #### [facility] [address] [place] [address]. [place], [address] IMMUNOHISTOCHEMISTRY Observed: 10/27/2018 Status: F Source: [place] 12:00 AM [facility] [place] REPOSITORY Patient: KODY CHANEY : 1990 (/) Acct Num: [id number] Phys: Grazyna RUIZ,Summer Unit Num: [id number] Loc: LABSPEC Specimen: [id number] Received: 10/31/18 - 8 Spec Type: IMMUNO TISSUES 1 TISSUES: A. Uterine cervix, NOS B. Uterine cervix, NOS C. Endocervical SPECIMEN INFORMATION: Tissue Source: A - Cervix at 3 o'clock, B - Cervix at 12 o'clock, C - ECC Clinical Info: ASCUS, positive HPV Specimen Number: [id number] A-C CPT code: 54339 x3, 94392 x3 METHODOLOGY: Deparaffinized sections of prefer/formalin-fixed tissue or PAP/DQ stained slides are incubated with monoclonal/polyclonal antibodies/oligonucleotide probes. Localization is made via biotin free immunoperoxidase method. Appropriate controls are performed and reacted as expected. Results on target cell population are indicated in the following table: RESULTS: ANTIBODY / CLONE RESULT Block A P16 (E6H4) negative Ki-67 (30-9) positive, low Block B P16 (E6H4) negative Ki-67 (30-9) positive, low Block C P16 (E6H4) positive, patchy Ki-67 (30-9) positive, moderate These tests were developed and their performance characteristics determined by [facility]. They may not have been cleared or approved by the U.S. Food and Drug Administration. The FDA has determined that such clearance or approval is not necessary. INTERPRETATION: A. Cervix, 3 o'clock, biopsy: Consistent with focal HPV change. B. Cervix, 12 o'clock, biopsy: Consistent with focal HPV change. C. Endocervix, curettage: Consistent with mild to moderate squamous dysplasia , MEREDITH I-II (HSIL). AM:arcadio 11/01/18 PHYS[facility]IAN [facility] INSTIT[facility] [address] [address] Signed Sae Moya, 11/01/18 <signature on file> Performed By: #### PIMM #### [facility] [address] [place] [address]. [place], [place], [address] ,URINE Collected: 10/16/2018 Status: F Source: [place] 3:57 PM [facility] REPOSITORY TYPE CODE TESTS RESULT OUT OF REFERENCE UNITS RANGE LAB L400.8000 Negative Normal HCGUQUAL Negative Result Comment: Very dilute urine specimens, as indicated by a low specific gravity, may not contain medical representative levels of hCG. If is still suspected, a first morning urine specimen should be collected 48 hours later and tested. Performed By: #### L400.7600 #### [facility] [address] [place] [address]. [place], [address] CT/NG WCH BY PCR Collected: 10/09/2018 Status: F Source: [place] 3:45 PM [facility] [place] REPOSITORY TYPE CODE TESTS RESULT OUT OF RANGE REFERENCE UNITS LAB L8200.2100 Negative Normal Chlam Negative Trac PCR LAB L8200.2200 Negative Normal NG by Negative PCR Performed By: #### L8200.2000 #### [facility] [address] [place], [address] PAP I-G W/RFX Collected: 10/09/2018 Status: F Source: [place] HRHPV-APTIMA 3:45 PM [facility] REPOSITORY Order Comment: CYTOLOGY INFORMATION: - CLINICAL INFORMATION: - DATE LMP/MENOPAUSE: 10/02/18 LMP - COLLECTION VIAL: Thin Prep Vial - ELECTRIC SERVICEMAN SOURCE: CERVICAL/ENDOCERVICAL - COLLECTION TECHNIQUE: BRUSH/SPATULA Specimen Comment: [id number] Specimen Comment: Source.............Cervix;Endocervix Specimen Comment: LMP / Prev Treat...MNX=[id number] Specimen Comment: No. of containers..01 ThinPrep Vial TYPE CODE TESTS RESULT OUT OF REFERENCE UNITS RANGE LAB L7400.0800 . High DIAGN Comment Result Comment: EPITHELIAL CELL ABNORMALITY. ATYPICAL SQUAMOUS CELLS OF UNDETERMINED SIGNIFICANCE. LAB L7400.0900 . Normal ADEQ Comment Result Comment: Satisfactory for evaluation. Endocervical and/or squamous metaplastic cells (endocervical component) are present. LAB L7400.1400 . Normal PERFORM Comment Result Comment: Yancy Jessica Cytopathology Technologist (ASCP) LAB L7400.1700 . Normal SIGN Comment Result Comment: Josh Delacruz MD (Charles), Pathologist LAB L7400.1720 . Normal Path prov. Comment ICD9 Result Comment: R87.610 LAB L7400.2575 . Normal TEST METHOD Comment Result Comment: This liquid based ThinPrep(R) pap test was screened with the use of an image guided system. LAB L7400.2600 . Normal . COMM LAB L7400.2700 . Normal PAPSMR Comment Result Comment: The Pap smear is a screening test designed to aid in the detection of premalignant and malignant conditions of the uterine cervix. It is not a diagnostic procedure and should not be used as the sole means of detecting cervical cancer. Both false-positive and false-negative reports do occur. LAB L7400.2800 . Normal HPV RFLX Comment Result Comment: See below for HPV testing results. LAB L7400.2810 Negative High HPV APTIMA, HR Positive Result Comment: This test detects fourteen high-risk HPV types (16/18/31/33/35/39/45/ 51/52/56/58/59/66/68) without differentiation. Performed at: [facility] [id number] Manager Paid: Fay Guzman MD, Phone: [phone] Performed at: - [facility] [id number] Manager Paid: Gale Bennett MD, Phone: [phone] Performed at: - [facility] [address] [id number] Manager Paid: Gale Bennett MD, Phone: [phone] Performed By: #### L7400.0353 #### [facility] (refer to report for specific site) refer to report for address and phone number ,URINE Collected: 09/04/2018 Status: F Source: [place] 3:46 PM [facility] REPOSITORY TYPE CODE TESTS RESULT OUT OF REFERENCE UNITS RANGE LAB L400.8000 Negative Normal HCGUQUAL Negative Result Comment: Very dilute urine specimens, as indicated by a low specific gravity, may not contain medical representative levels of hCG. If is still suspected, a first morning urine specimen should be collected 48 hours later and tested. Performed By: #### L400.7600 #### [facility] [address] [place], [address] Observed: 12/11/2017 Status: F Source: [place] URINE CULTURE 3:03 PM [facility] REPOSITORY Sp. Request/Comment: - Specimen received in [...] <=0.5 F Performed By: #### URCUL #### [facility] [address] [place], [place] [address] PROGRESS Observed: 12/11/2017 Status: COMPLETED Source: [place] 2:47 PM [facility] REPOSITORY HNO ID: [id number] Author: Bee (Jason) Service: (none) Author Type: Nurse Practitioner Type: [...] symptoms occur. Patient agreeable to treatment plan. Bee Cervantes CNP CNOV Observed: 12/11/2017 Status: COMPLETED Source: [place] 2:30 PM [facility] REPOSITORY [facility] ([id number]) 1990 F Date Time Provider Department 12/11/17 2:30 PM BEE CERVANTES (JASON) UC[facility]STR During your visit today, we recorded the following information about you: Temperature Pulse Respiration Blood pressure 98.8 degrees 72/minute 16/minute 120/74 Weight 70.8 kg Bee JASON Cervantes 12/11/2017 3:37 PM Signed Subjective HPI HPI [...] Rash Date Reviewed: 12/11/2017 Reviewed by: Bee GonzalezBelchertown State School For The Feeble-MindedSharon Cervantes - Fully Assessed Reason for Visit: Urinary Problem [252] Cmt: urgency with a feeling of pressure X 2 weeks Primary Visit Diagnosis:Urinary urgency [R39.15] Order(s):URINE CULTURE [SQURCUL] Order #: [id number] UA DIP B/O [0982342] Order #: [id number] sulfamethoxazole-trimethoprim (BACTRIM DS) 800-160 mg per tabletTake [...] encounter IBUPROFEN 800 MG TABLET >> Dasha Carroll LPN 12/11/2017 2:35 PM >> NAY DASHA LPN TueDec 11, 2017 2:35 PM Not taking FEXOFENADINE 180 MG TABLET >> Dasha Carroll MALTER OPERATOR 12/11/2017 2:36 PM >> DASHA CARROLL LPN TueDec 11, 2017 2:36 PM Not taking CLARITIN ORAL >> Dasha Carroll MALTER OPERATOR 12/11/2017 2:35 PM >> CARROLL, DASHA LPN TueDec 11, 2017 2:35 PM PRN Problem List [...] Status:Closed by BEE CERVANTES CNP on 12/11/17 ALLERGIES ALLERGIES DATE TYPE / CODE NAME / CODE REACTION SEVERITY SOURCE 06/30/2016 DRUG/[id number](SNOM HYDROCODONE OTHER: SEE C [facility] ED CT) -ACETAMINOP [facility] HEN Repository 10/05/2013 Drug No Known Unknown [place] Allergy/784499366( Allergies/F On License Of [facility] NOMED CT) [id number]([facility] XNORM) Repository 05/09/2008 Miscellaneous OTHER RASH [facility] Allergy/881327328([facility] NOMED CT) Repository ENCOUNTERS ENCOUNTERS ADMIT/DISCHARGE ACCOUNT ADMITTING ENCOUNTER LOCATION SOURCE NUMBER CLASS 10/27/2018 [id number] [facility] ing:LABSPEC Repository 10/19/2018 [id number] [facility] ing:LAB.FUTUR Repository E 10/16/2018 [id number] [facility] ing:MTLAB Repository 10/09/2018 [id number] [facility] ing:LABSPEC Repository 09/04/2018 [id number] [facility] ing:MTLAB Repository 12/11/2017/12/13/19 [id number] [address]ulatory [address] Repository PAYERS PAYERS ENCOUNTER GUARANTOR PAYER SUBSCRIBER SOURCE 10/27/2018 KODY Sarabia Primary KODY R Niesha [address] Insurance:AULTCAREPol GADEMERDOB: [address] icy Number: [id number] [facility] [address]Tol: [id number] Repository e Date:3555-23-41BS () [address] [place] [phone]: 10/27/2018 Secondary NOT GIVENUNK Niesha Insurance:SELF PAY [facility] Number: Effective Repository Date:2018-10-27 10/19/2018 KODY R Primary KODY R Niesha [address] Insurance:AULTCAREPol GADEMERDOB: [address] icy Number: [id number] [facility] [address]Eea: [id number] Repository e Date:2224-00-69YN () [address] [place] [phone]: 10/19/2018 Secondary NOT GIVENUNK [place] Insurance:SELF PAY [facility] Number: Effective Repository Date:2018-10-16 10/16/2018 KODY R Primary KODY R Niesha [address] Insurance:AULTCAREPol GADEMERDOB: [address] icy Number: [id number] [facility] [address]Prr: [id number] Repository e Date:0034-09-49DY () [address] [place] [phone]: 10/16/2018 Secondary NOT GIVENUNK [place] Insurance:SELF PAY [facility] Number: Effective Repository Date:2018-10-16 10/09/2018 KODY R Primary KODY R Niesha [address] Insurance:AULTCAREPol GADEMERDOB: [address] icy Number: [id number] [facility] [address]Fqa: [id number] Repository e Date:2232-56-10WJ () [address] [place] [phone]: 10/09/2018 Secondary NOT GIVENUNK Niesha Insurance:SELF PAY [facility] Number: Effective Repository Date:2018-10-09 09/04/2018 KODY Sarabia Primary KODY Beltranoster [address] Insurance:AULTCAREPol GADEMERDOB: Community norma [place]ONNER Number: [id number] [facility] [address]Xbp: [id number] Repository e Date:8493-36-59UB () [facility] [address] [phone]: 09/04/2018 Secondary NOT GIVENUNK [place] Insurance:SELF PAY [facility] Number: Effective Repository Date:2018-09-04
== END ==
PROVIDERS: Referring Provider Obstetrics & Gynecology; Visit Provider Obstetrics & Gynecology
DX: R87.610 Atypical squamous cells of undetermined significance on cytologic smear of cervix (ASC-US) (principal); R87.810 Cervical high risk human papillomavirus (HPV) DNA test positive
CPT/HCPCS: 88305; 88341; 88342

== ENCOUNTER → 2018-11-17 07:32 | Outpatient (CLI) | payer OTHER, SELFPAY ==
[2018-11-17 10:21] LABS: Prothrombin Time (Protime)PT. 13.5 SECONDS (11.7-14.9)
== END ==
PROVIDERS: Referring Provider Physician Assistant; Visit Provider Physician Assistant
DX: Z01.818 Encounter for other preprocedural examination (principal); L70.0 Acne vulgaris
CPT/HCPCS: 36415; 85610

== ENCOUNTER → 2018-11-27 16:05 | Outpatient (CLI) | payer OTHER, SELFPAY ==
[2018-11-27 18:09] LABS: Internal QC Validated? YES +Cl - CLEAR BKGD
[2018-11-27 18:10] LABS: Pregnancy, Urine Negative Negative
== END ==
PROVIDERS: Referring Provider Physician Assistant; Visit Provider Physician Assistant
DX: L70.0 Acne vulgaris (principal)
CPT/HCPCS: 81025

== ENCOUNTER 2018-12-07 08:18 | Day surgery (SDC) | payer OTHER, SELFPAY ==
[2018-12-07] VITALS (7 sets, daily range): BP systolic 95–123; BP diastolic 55–77; PULSE 55–76; RESP 14–18; TEMP 36.8–37.1; O2SAT 96–100; BMI 28.7
--- NOTE | 2018-12-07 | IMM_PTH ---
PATIENT: KODY EARL LOC: [facility] – [place] U#:[id number] AGE/SX: 28/F ROOM: RE12/07/[address]: Dr. Beba Ramirez MD : 1990 BED: DIS: 12/07/2018 SPEC #: [id number] RECD: 12/11/18 12:16 STATUS: CLEMENT REQ #: [id number] BRIAN: 12/07/18 00:[address]: Beba Up DEPT: IMMUNOHISTOCHEMISTRY RECD BY: Eula Mojica ENTERED: 12/11/18 12:17 SP TYPE: IMMUNO OTHR DR: Dr. Waleska Torres, DO Tissues: A - Uterine cervix, NOS Procedures: p16 (initial) KI-67 (add) P16 (add) PHYSICIAN & INSTITUTION [place] [id number] SPECIMEN INFORMATION: Tissue Source: A - Ectocervix Clinical Info: Moderate cervical dysplasia Specimen Number: [id number] A2 & A4 CPT code: 51267, 88678 x3 METHODOLOGY: Deparaffinized sections of prefer/formalin-fixed tissue or PAP/DQ stained slides are incubated with monoclonal/polyclonal antibodies/oligonucleotide probes. Localization is made via biotin free immunoperoxidase method. Appropriate controls are performed and reacted as expected. Results on target cell population are indicated in the following table: RESULTS: ANTIBODY / CLONE RESULT Block A2 P16 (E6H4) negative Ki-67 (30-9) negative Block A4 P16 (E6H4) negative Ki-67 (30-9) negative These tests were developed and their performance characteristics determined by [facility]. They may not have been cleared or approved by the U.S. Food and Drug Administration. The FDA has determined that such clearance or approval is not necessary. INTERPRETATION: A. Ectocervix, LEEP conization: Focal changes consistent with HPV cytopathic effects. SJ:arcadio 12/12/18
--- NOTE | 2018-12-07 06:44 | HP.PCM_ITS ---
- Problem List (1) Moderate cervical dysplasia Status: Acute History and Physical Date of Admission: 12/07/18 Surgical History and Physical Date: 11/09/2018 Name: XIOMY FONG Age: 28 Date of : 1990 Xiomy Fong, a 28 year old female 0 0 1 0 0, presents for LEEP with top hat on December 07,2 019 at 9;45. -- Hx LSGIL PAP. 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 shm MEDICATIONS HISTORY: Current medications prescribed by our practice are: 1. Ortho-Novum (28) 1 mg-35 mcg tablet, 1 tab PO daily Patient is also takin. Myorisan 40 mg capsule, As Directed ALLERGIES: No Known Drug Allergies, Vicodin, Severe nausea & vomiting, Percocet and Severe nausea & vomiting Infections - chicken pox Illnesses - asthma, whezing, back pain Accidents - None Hospitalizations - dehydration in fifth gracde most recent pap 2012; Review of Systems: GENERAL - Denies fever, or chills SKIN - Denies skin changes EYES - wears eye glasses and wears contact lenses EARS - Denies difficulty hearing NOSE - Denies nasal congestion or bleeding MOUTH - Denies sore throat or difficulty swallowing NECK - Denies pain or swelling RESPIRATORY - Denies shortness of breath or wheezing CARDIOVASCULAR - Denies palpitations or chest pain GASTROINTESTINAL - Denies nausea, vomiting, diarrhea, constipation GENITOURINARY - Denies dysuria, frequency of urination, incontinence of urine MUSCULOSKELETAL - Denies joint or muscle pain NEUROLOGICAL - Denies localized numbness or weakness PSYCHIATRIC - Denies depression or anxiety ENDOCRINE - Denies heat or cold intolerance, weight loss or gain HEMATO-IMMUNOLOGIC - Denies excesive bleeding with cuts SOCIAL HISTORY: Alcohol Use - drinks occasionally Smoking - used to smoke but quit Diet - balanced Diet Lifestyle - moderate stress lifestyle Exercise - regular Seat Belt Use - always Employer - [email or web address], student Illicit Drug Use - denies use of street drugs Sexual Activity - sexually inactive Residence - rents Control - [facility] FAMILY HISTORY: MENSTRUAL HISTORY: LMP Known?- ApproximateAmount/Duration - 4-5 days, Regularity - regular, Frequency - monthly days, LMP - 11/03/18, Age Onset Menarche - 10 PAST PREGNANCIES: Total Pregnancies - 1; Full Term Pregnancies - 0; Premature - 0; Abortions, Induced - 1; Abortions, Spontaneous - 0; Ectopics - 0; Multiple Births - 0; Living Children - 0 SURGICAL HISTORY: 1. Presho Teeth Removal ; - PHYSICAL EXAM BP- 146/82 Sitting, Right arm, regular cuff Weight- 160.85335 lbs Height- 62.25 inch BMI:29.09 CONSTITUTIONAL - NAD, well nourished, and well developed SKIN - No rash, lesions, or ulcers HEENT - normocephalic, atraumatic, sclerae anicteric LUNGS - normal respiratory rate and rhythm NEUROLOGICAL - normal gait, normal balance, normal motor PSYCHIATRIC - A and O to time, place, person, mood and affect External Genitial Vagina - non-tender without lesions Urethra/Urethral Meatus - non-tender Bladder - non-tender Vagina - vaginal chu are pink and moist without loss of rugae and no evidence of atropy Cervix - without cervical motion tenderness and has normal size and features without evident lesions Uterus - 5-6 cm in size, mobile and nontender Adnexa - clear without massess or tenderness Pap - done and GC/Chlamydia cultures done ASSESSMENT/PLAN: 1. 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 Procedural r/b/i/a reviewed. Sign consents on day of surgery. NPO @ [place] Prior
[2018-12-07 08:43] LABS: Internal QC Validated? YES +Cl - CLEAR BKGD; Pregnancy, Urine Negative Negative
--- NOTE | 2018-12-07 09:45 | CER_PTH ---
PATIENT: KODY EARL LOC: [facility] – [place] U#:[id number] AGE/SX: 28/F ROOM: RE12/07/[address]: Dr. Beba Ramirez MD : 1990 BED: DIS: 12/07/2018 SPEC #: [id number] RECD: 12/07/18 14:56 STATUS: CLEMENT REMassiel #: [id number] BRIAN: 12/07/18 09:[address]: Beba Up DEPT: SURGICAL PATHOLOGY RECD BY: Rudi Preston ENTERED: 12/08/18 11:53 SP TYPE: CERV OTHR DR: Dr. Waleska Torres, DO Tissues: A - Uterine cervix, NOS B - UTERINE CERVIX LEEP C - Endocervical Procedures: Surgery Specimen Level IV Surgery Specimen Level V HEADER OPERATION: LEEP darshan haines PRE-OP DIAGNOSIS: Moderate cervical dysplasia TISSUE SUBMITTED: A - Ectocervical - open at 6 o'clock, B - Top hat, C - ECC after LEEP MICROSCOPIC DIAGNOSIS A. Ectocervix, LEEP conization: Focal changes consistent with HPV cytopathic effects. Extensive squamous metaplasia. The resection margins are free of dysplastic changes. See comment. B. Top hat, LEEP conization: Negative for dysplasia. C. ECC after LEEP: Fragments of benign endocervical epithelium, blood and mucous, negative for dysplasia. SJ:arcadio 12/11/18 COMMENT A. Immunohistochemistry ([id number]) for surrogate HPV marker (p16) supports the above diagnosis. Please make reference to previous specimen ([id number]) cervix at 3 o'clock, biopsy and cervix at 12 o'clock, biopsy with diagnosis of consistent with focal HPV change and endocervix, curettings with diagnosis of detached strips of squamous mucosa with mild to moderate squamous dysplasia. Case has been reviewed in consultation with Dr. Moya who concurs with the above diagnosis. IDC:AM MICROSCOPIC DESCRIPTION Slides are reviewed. GROSS DESCRIPTION A - Received in fixative is one container labeled with the patient's name and designated ectocervix. The specimen consists of a lala, indurated piece of LEEP conization measuring 2.5 x 2 cm and up to 0.5 cm in length. No mucosal lesion is identified. Nonmucosal surface is inked black. The specimen is serially sectioned and submitted entirely in four cassettes as follows: 1 - 12 to 3 o'clock, 2 - 3 to 6 o'clock, 3 - 6 to 9 o'clock, 4 - 9 to 12 o'clock. B - Received in fixative is one container labeled with the patient's name and designated top hat. The specimen consists of a lala, indurated piece of LEEP conization measuring 1.5 x 1.2 x 0.5 cm. No mucosal lesion is identified. Nonmucosal surface is inked black. The specimen is serially sectioned and submitted entirely in two cassettes. C - Received in fixative is one container labeled with the patient's name and designated ECC after LEEP. The specimen consists of multiple irregular fragments of lala mucoid tissue that in aggregate measure 1 x 1 x 0.2 cm. The specimen is totally submitted in one cassette. / SJ:rg 12/08/18 TC:5 CPT: 11777 x2, 51820
--- NOTE | 2018-12-07 11:26 | OP.PCM_ITS ---
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 ectocervix. 2. top hat. 3. ecc Estimated Blood Loss (mL): 20 Fluids Replaced: 1200 ml Description of Procedure: Indications: 28-year-old nulligravida with a history of MEREDITH-2 found on ECC durin g colposcopy following abnormal Pap. She was counseled regarding management options and opted to proceed with LEEP procedure. Risks, benefits, indications and alternatives were reviewed at length. Consents were signed. Patient was given an opportunity to ask questions and questions were answered to her satisfaction. Procedure: Patient was taken to the operating room and sinus performed. She is placed on dorsal supine position and induced under MAC. She is then placed into dorsal lithotomy and the perineum was prepped and draped in sterile fashion. An insulated speculum was placed into the vagina. Paracervical block was placed including 20 cc of 1% lidocaine with 1: 100,000 epinephrine. Lugol's solution applied to the cervix with mild Lugol's resistance at 12:00. LEEP was performed and subsequently followed by Micaela. Endocervical curettings were obtained. The cervical excisional bed was fulgurated then coagulated for hemostasis. Monsel solution was applied with excellent hemostasis attained. The procedure was complete. The patient was placed into dorsal supine position, awakened and transferred to the recovery room without complication. Sponge counts were correct x2. She tolerated the procedure well. - Complications None - Admit VTE Documentation VTE Present on Admission: No VTE Mechan Device Prophylaxis: SCD's VTE Pharm Prophylaxis ordered?: No
--- NOTE | 2018-12-07 11:30 | DCINST_ITS ---
Discharge Diet: No Restrictions Discharge Activity: Return to Normal Activity, May not drive while taking narcotic pain medications., May Shower, - - No tub bath for 2 weeks; No driving for 24 hours May resume sexual activity in: 4 weeks Call your doctor if you observe: Fever of 101 or Higher, Inability to have a bowel movement, Using more than one pad per hour, Shortness of breath, Chest pain, Calf discomfort, Uncontrolled pain Allergies/Adverse Reactions: Allergies hydrocodone [From Vicodin] Adverse Reaction (Verified 12/05/18 16:24) Vomiting oxycodone [From Percocet] Adverse Reaction (Verified 12/05/18 16:24) Vomiting Medications to take at Discharge Isotretinoin [Myorisan] 40 mg PO DAILY 12/05/18 Norethindrone-Ethinyl Estrad [Alyacen 1-35 28 Tablet] 1 each PO DAILY 12/05/18 Ibuprofen [Motrin] 800 mg PO TID PRN PRN #30 tablet 12/07/18 The following prescriptions were given: Ibuprofen [Motrin] 800 mg PO TID PRN PRN #30 tablet PRN Reason: Pain Primary Care Physician: Waleska Torres DO [Primary Care Provider] - Test Results: Test results from this visit will be discussed in further detail at your follow- up appointment, if applicable. Please Follow Up With: Beba Geronimo MD When: 2-4 weeks
== END 2018-12-07 12:27 | disposition home or self-care (01) ==
LOC: SDC 08:20 → AC 08:20
PROVIDERS: Referring Provider Obstetrics & Gynecology; Visit Provider Obstetrics & Gynecology
PROC: 0UBC7ZZ Excision of Cervix, Via Natural or Artificial Opening (ICD-10-PCS; CPT 57522; principal; 2018-12-07 09:30)
DX: N87.1 Moderate cervical dysplasia (principal); R87.810 Cervical high risk human papillomavirus (HPV) DNA test positive; Z87.891 Personal history of nicotine dependence; Z79.899 Other long term (current) drug therapy
CPT/HCPCS: 00940; 57461; 81025; 88305; 88307; 88341; 88342; J7120; J2405

== ENCOUNTER → 2019-01-02 16:54 | Outpatient (CLI) | payer OTHER, SELFPAY ==
[2018-12-07 08:47] VITALS: BMI 28.7
[2019-01-02 17:48] LABS: Internal QC Validated? YES +Cl - CLEAR BKGD; Pregnancy, Urine Negative Negative
== END ==
PROVIDERS: Visit Provider Physician Assistant
DX: L70.0 Acne vulgaris (principal)
CPT/HCPCS: 81025

== ENCOUNTER → 2019-10-24 13:43 | Outpatient (CLI) | payer OTHER, SELFPAY ==
[2018-12-07 08:47] VITALS: BMI 28.7
== END ==
PROVIDERS: Referring Provider Obstetrics & Gynecology; Visit Provider Obstetrics & Gynecology
DX: Z12.4 Encounter for screening for malignant neoplasm of cervix (principal); Z11.3 Encounter for screening for infections with a predominantly sexual mode of transmission

== ENCOUNTER → 2019-10-25 16:50 | Outpatient (CLI) | payer OTHER, SELFPAY ==
[2018-12-07 08:47] VITALS: BMI 28.7
[2019-10-25 17:17] LABS: Absolute Lymphocyte Count 1.98 X10^3/uL (0.83-4.51); Absolute Neutrophil Count 6.3 X10^3/uL (2.0-7.7); Basophil# 0.01 X10^3/uL; Basophil% 0.1 % (0-1); Eosinophils% 2.2 % (0-5); Hematocrit 37.5 % (37-47); Hemoglobin 12.4 g/dL (12.0-15.0); Lymphocyte # 1.98 X10^3/ul (4.0); Lymphocyte % 21.3 % (19-41); Mean Corp Hgb Conc 33.1 g/dL (32-36); Mean Corpuscular Hgb 29.7 pg (27.0-32.0); Mean Corpuscular Volume 89.9 fL (81-99); Mean Platelet Vol. 12.3 fl (6.2-12.0); Monocyte# 0.81 X10^3/uL; Monocyte% 8.7 % (0-10); NRBC Flagged by Analyzer 0 % (0-5); Neutrophil # 6.27 X10^3/uL (2.7-7.7); Neutrophil % 67.4 % (47-70); Platelet Count 208 K/mm3 (150-450); RBC Distribution Width CV 12.4 % (11.6-14.6); RBC Distribution Width SD 40.7 fl (35.1-43.9); Red Blood Count 4.17 M/mm3 (4.2-5.4); White Blood Count 9.3 K/mm3 (4.4-11.0)
[2019-10-25 18:08] LABS: Color, Urine Yellow (Yellow); Glucose, Dipstick Normal (Normal); Ketone-Dipstick Negative (Negative); Leukocyte Esterase-Dipstick Negative /ul (Negative); Nitrite-Dipstick Negative (Negative); Occult Blood-Urine 50 /ul (Negative); Protein-Dipstick Negative (Negative); Specific Gravity, Urine 1.025 (1.002-1.030); Urine Bilirubin Dipstick Negative (Negative); Urine Clarity Sl. Cloudy (Clear); Urine Urobilinogen Normal (Normal)
[2019-10-25 18:17] LABS: Amphetamine Urine VISTA NEGATIVE (<1000 ng/mL); Barbiturate Urine VISTA NEGATIVE (< 200 ng/mL); Benzodiazepine Urine VISTA NEGATIVE (< 200 ng/mL); Cocaine Urine VISTA NEGATIVE (< 300 ng/mL); Ecstacy Urine VISTA NEGATIVE (< 500 ng/mL); Methadone Urine VISTA NEGATIVE (< 300 ng/mL); PCP Urine VISTA NEGATIVE (< 25 ng/mL); THC Urine VISTA NEGATIVE (< 50 ng/mL); Vista UDS pH Range 5
[2019-10-25 19:09] LABS: Thyroid Stim Hormone (TSH) 2.52 uIU/mL (0.358-3.74)
[2019-10-26 08:56] LABS: HIV - WCH Non-Reactive (Nonreactive); Hepatitis B Surface Antigen Non-Reactive (Nonreactive); Hepatitis C Antibody Non-Reactive (Nonreactive); Rubella IgG 55.9 IU/mL
[2019-11-01 01:51] LABS: Prenatal RPR NONREACTIVE (NONREACTIVE)
== END ==
PROVIDERS: Visit Provider Obstetrics & Gynecology
DX: Z34.81 Encounter for supervision of other normal pregnancy, first trimester (principal)
CPT/HCPCS: 80307; 81002; 84443; 85025; 86703; 86762; 86803; 87340

== ENCOUNTER → 2020-01-23 | Outpatient (CLI) | payer OTHER, SELFPAY ==
[2018-12-07 08:47] VITALS: BMI 28.7
[2020-01-23 18:18] LABS: Hematocrit 36.9 % (37-47); Hemoglobin 12.1 g/dL (12.0-15.0); Mean Corp Hgb Conc 32.8 g/dL (32-36); Mean Corpuscular Hgb 29.6 pg (27.0-32.0); Mean Corpuscular Volume 90.2 fL (81-99); Mean Platelet Vol. 12.7 fl (6.2-12.0); Platelet Count 217 K/mm3 (150-450); RBC Distribution Width CV 12.4 % (11.6-14.6); RBC Distribution Width SD 40.1 fl (35.1-43.9); Red Blood Count 4.09 M/mm3 (4.2-5.4)
[2020-01-23 18:28] LABS: Glucose Challenge Gest 1H 50g 81 mg/dL (70-140)
== END | disposition home or self-care (01) ==
PROVIDERS: Referring Provider Obstetrics & Gynecology; Visit Provider Obstetrics & Gynecology
DX: Z34.83 Encounter for supervision of other normal pregnancy, third trimester (principal)
CPT/HCPCS: 82950; 85027

== ENCOUNTER → 2020-03-20 | Outpatient (CLI) | payer OTHER, SELFPAY ==
[2018-12-07 08:47] VITALS: BMI 28.7
== END | disposition home or self-care (01) ==
PROVIDERS: Referring Provider Obstetrics & Gynecology; Visit Provider Obstetrics & Gynecology
DX: Z36.85 Encounter for antenatal screening for Streptococcus B (principal)
CPT/HCPCS: 87081

== ENCOUNTER → 2020-04-08 | Outpatient (CLI) | payer OTHER, SELFPAY ==
[2018-12-07 08:47] VITALS: BMI 28.7
== END | disposition home or self-care (01) ==
LOC: MTDU 04-15 11:17
PROVIDERS: Referring Provider Obstetrics & Gynecology; Visit Provider Obstetrics & Gynecology
DX: Z11.59 Encounter for screening for other viral diseases (principal)
CPT/HCPCS: 87635; G2023; U0003

== ENCOUNTER 2020-04-16 11:35 | Inpatient (IN) | payer OTHER, SELFPAY ==
[2018-12-07 08:47] VITALS: BMI 28.7
[2020-04-16] VITALS (30 sets, daily range): BP systolic 104–156; BP diastolic 56–95; PULSE 76–101; TEMP 36.4–37.4; O2SAT 97–100; BMI 34.2
--- NOTE | 2020-04-16 06:57 | OB.TRI.NOTE ---
- Problem List (1) 40 weeks gestation of Status: Acute History of Present Illness Date of Service: 04/16/20 Was patient seen by the physician?: Yes Reason For Visit: RULE OUT LABOR Date of Service: 04/16/20 Final HUMAIRA: 04/13/20 Final HUMAIRA Source: US <20 weeks Gestational age: 40 Weeks and 3 Days History of Present Illness: Has been rosalind for the last day. Q5 minutes and rating them a 9/10. Allergies hydrocodone [From Vicodin] Adverse Reaction (Verified 04/16/20 03:39) Vomiting oxycodone [From Percocet] Adverse Reaction (Verified 04/16/20 03:39) Vomiting Review of Systems Constitutional: Denies: Chills, Fever, Weight Change HEENT: Denies: Head Aches, Sinus Congestion, Sinus Drainage Cardiovascular: Denies: Chest Pain, Palpitations Respiratory: Denies: Cough, Shortness of breath at rest, Sputum production Gastrointestinal: Denies: Abdominal Pain, Nausea, Vomiting Genitourinary: Denies: Dysuria Musculoskeletal: Denies: Joint Pain, Joint Tenderness Skin: Denies: Rash, Wounds Neurological: Denies: Numbness, Tingling, Focal weakness Psychiatric: Denies: Anxiety, Depression, Homicidal Ideations, Suicidal Ideations Hematologic/ Lymphatic: Denies: Easy Bruising, Easy Bleeding Physical Exam Vitals: Vital Signs Temp Pulse BP Pulse Ox 98.0 F 85 128/73 H 97 04/16/20 03:49 04/16/20 03:49 04/16/20 03:49 04/16/20 03:49 General: Alert, Oriented x3, No apparent distress HEENT: Atraumatic, Normocephalic. 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 Negative for: Vulvar lesions Estimated gestational size: Appropriate for gestational size Presentation: Cephalic Cervix Dilation (cm): 1 Station: -3 Effacement (%): 10 NST - FHR Rate Baby A Baseline: 140 Variability:: Moderate Accelerations:: 15 x 15 Decelerations:: None NST Reactive:: Yes FHR Category:: Category I Uterine Activity:: Q2-6 minutes Impression/Plan A/P: After 2.5 hours SVE unchanged at 10/19/high UC 2-5m Early labor Previous hx of LEEP Discussed discharge home with therapeutic rest, Rx for Ambien To hydrate and call after a nap Wishes to proceed with IOL tonight or tomorrow if able per WP scheduling
[2020-04-16] MEDS: Lactated Ringers 1,000 ML 50 ML IV (12:30)
[2020-04-16 12:32] LABS: ROM Internal Control Test YES-OK TO RESULT pt. (Internal QC); ROM Patient Test Negative (Negative)
[2020-04-16 12:52] LABS: Absolute Lymphocyte Count 1.22 X10^3/uL (0.83-4.51); Absolute Neutrophil Count 17.5 X10^3/uL (2.0-7.7); Basophil# 0.03 X10^3/uL; Basophil% 0.1 % (0-1); Hematocrit 35.8 % (37-47); Hemoglobin 11.7 g/dL (12.0-15.0); Lymphocyte # 1.22 X10^3/ul (4.0); Mean Corp Hgb Conc 32.7 g/dL (32-36); Mean Corpuscular Hgb 28.8 pg (27.0-32.0); Mean Corpuscular Volume 88.2 fL (81-99); Mean Platelet Vol. 13.9 fl (6.2-12.0); Monocyte# 1.42 X10^3/uL; NRBC Flagged by Analyzer 0 % (0-5); Neutrophil # 17.46 X10^3/uL (2.7-7.7); Neutrophil % 86.1 % (47-70); Platelet Count 187 K/mm3 (150-450); RBC Distribution Width CV 13.3 % (11.6-14.6); RBC Distribution Width SD 43.2 fl (35.1-43.9); Red Blood Count 4.06 M/mm3 (4.2-5.4); White Blood Count 20.3 K/mm3 (4.4-11.0)
[2020-04-16] MEDS: Lactated Ringers 500 ML 999 ML IV (13:08)
[2020-04-16] MEDS: fentaNYL-bupivacaine (epidural) 100 ML BAG EPIDURAL ×3 (13:51→23:16)
[2020-04-16] MEDS: Ondansetron 4 MG/2 ML Vial IV (17:02)
[2020-04-16] MEDS: 0.9% Saline Lock 10 ML Syringe IV (17:02)
[2020-04-16] MEDS: Lactated Ringers 1,000 ML 200 ML IV ×2 (18:22→23:16)
[2020-04-16] MEDS: Acetaminophen 325 MG Tablet PO (18:55)
[2020-04-16] MEDS: proCHLORPERazine 10 MG/2 ML Vial IV (19:49)
--- NOTE | 2020-04-16 19:52 | HP.PCM_ITS ---
- Problem List (1) 40 weeks gestation of Status: Acute History Date of Admission: 12/07/18 Final HUMAIRA: 04/13/20 Final HUMAIRA Source: US <20 weeks Gestational age: 40 Weeks and 3 Days History of this : This is a 29 year-old, G [], P [], at 40 weeks gestational age. Allergies hydrocodone [From Vicodin] Adverse Reaction (Verified 04/16/20 03:39) Vomiting oxycodone [From Percocet] Adverse Reaction (Verified 04/16/20 03:39) Vomiting Home Medications: Home Medications Acetaminophen [Tylenol] 325 mg PO 04/16/20 Pnv No.95/Ferrous Fum/Folic AC [ Caplet] 1 tab PO DAILY 04/16/20 Zolpidem Tartrate [Ambien (Generic)] 5 mg PO QHS PRN PRN #2 tab 04/16/20 Smoking Status: Former smoker Alcohol: None Substance Use Type: Alcohol, Sleep Aides Number of Fetus(es): 1 NST - FHR Rate Baby A Baseline: 140 Variability:: Moderate Accelerations:: 15 x 15 Decelerations:: None NST Reactive:: Yes FHR Category:: Category I Uterine Activity:: Q6 History Past Pregnancies: Past Pregnancies: Reports one SAB Labs: Mom's Problem List Problem Status Onset Code 40 weeks gestation of Acute Z3A.40 Mom's Labs & Results 04/16/20 04/16/20 04/16/20 11:45 12:35 12:35 WBC 20.3 H RBC 4.06 L Hgb 11.7 L Hct 35.8 L MCV 88.2 MCH 28.8 MCHC 32.7 RDW Std Deviation 43.2 RDW Coeff of Janae 13.3 Plt Count 187 MPV 13.9 H Immature Gran % (Auto) 0.800 Neut % (Auto) 86.1 H Lymph % (Auto) 6.0 L [place] % (Auto) 7.0 Eos % (Auto) 0.0 Baso % (Auto) 0.1 Absolute Neuts (auto) 17.5 H Absolute Lymphs (auto) 1.22 Nucleated RBC % 0 Vag Amniotic Fld Detect Negative COVID-19 (ARIADNA) Blood Type O POSITIVE Antibody Screen NEGATIVE 04/16/20 13:55 WBC RBC Hgb Hct MCV MCH MCHC RDW Std Deviation RDW Coeff of Janae Plt Count MPV Immature Gran % (Auto) Neut % (Auto) Lymph % (Auto) [place] % (Auto) Eos % (Auto) Baso % (Auto) Absolute Neuts (auto) Absolute Lymphs (auto) Nucleated RBC % Vag Amniotic Fld Detect COVID-19 (ARIADNA) Negative Blood Type Antibody Screen Course Did the patient receive Yes care? Labs Blood Type: O RH: POSITIVE RPR/VDRL/Syphilis Nonreactive Rubella status Immune HbSAg Negative Date Done: 10/25/19 Chlamydia Negative Gonorrhea Negative HIV/AIDS Non-Reactive Group B Strep: Negative Current Obstetrical History Gestational Diabetes No Incompetent Cervix No Infertility No IUGR No Macrosomia No Hypertension/Pre-eclampsia No Placenta Previa/Abruption No PTL/PROM No Uterine anomaly No Oligohydramnios No Polyhydramnios No Multiple gestation No Past Medical History Asthma No Diabetes No Hypertension No Heart disease No Mitral valve prolapse No Neurologic/Seizure disorder/ No Migraines Kidney disease No Liver disease No Varicosities No Clotting disorders/Hx of DVT No Thyroid Dysfunction No Other medical diseases Yes: trigeminal neuralgia Psychiatric disorders No Major trauma No Abnormal PAP smear Yes: HPV/abnormal cells-leep 2018 Sleep apnea No Mammogram in the last 2 years No Social History Marital Status: SINGLE Alleged father Silvino Hx Smoking No Smoking Status Former smoker Substance Use Type Alcohol,Sleep Aides How long have you used found out at 15wks and stopped drinking substances (years)? What date/time did you last 5mg ambien today 04/16 0900 use any of the above? Have you had any previous no inpatient or outpatient treatment Expected Infant Delivery Method: Spontaneous Vaginal Number of Visits: 12 Review of Systems Constitutional: Denies: Chills, Fever, Weight Change HEENT: Denies: Head Aches, Sinus Congestion, Sinus Drainage Cardiovascular: Denies: Chest Pain, Palpitations Respiratory: Denies: Cough, Shortness of breath at rest, Sputum production Gastrointestinal: Denies: Abdominal Pain, Nausea, Vomiting Genitourinary: Denies: Dysuria Musculoskeletal: Denies: Joint Pain, Joint Tenderness Skin: Denies: Rash, Wounds Neurological: Denies: Numbness, Tingling, Focal weakness Psychiatric: Denies: Anxiety, Depression, Homicidal Ideations, Suicidal Ideations Hematologic/ Lymphatic: Denies: Easy Bruising, Easy Bleeding Physical Exam Vitals: Vital Signs Temp Pulse BP Pulse Ox 97.6 F L 82 111/71 100 04/16/20 19:15 04/16/20 19:15 04/16/20 19:15 04/16/20 19:15 General: Alert, Oriented x3, No apparent distress HEENT: Atraumatic, Normocephalic. 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 Negative for: Vulvar lesions Estimated gestational size: Appropriate for gestational size Presentation: Cephalic Cervix Dilation (cm): 8 Station: 1 Effacement (%): 90 Assessment/Plan All Active Problems Moderate cervical dysplasia (Acute) 40 weeks gestation of (Acute) A/P: This is a 29 year-old, G [2], P [0], at 40 weeks gestational age. Presented earlier back to and was 3/70/-1 At this time SVE 8/90/+1 UC Q6 min Active labor NST Reactive Category I Has epidural for pain management and comfortable Expect
[2020-04-17] VITALS (24 sets, daily range): BP systolic 111–131; BP diastolic 60–85; PULSE 72–104; RESP 16–18; TEMP 36.5–37.4; O2SAT 97–98
--- NOTE | 2020-04-17 00:55 | PCM.PN.OB ---
Patient Problems: Active and Suspected Problems 40 weeks gestation of (Acute) Subjective: Epidural working well with no pain. A little tired, but overall feeling well. Objective: VSS. FHR baseline 145, +accels, -decels, moderate variability. Cateogry I - Physical Exam Vitals/I&O's: Vital Signs Temp Pulse BP Pulse Ox 99.0 F 81 120/68 97 04/17/20 06:14 04/17/20 06:14 04/17/20 06:14 04/17/20 06:14 Weight: 85 kg Body Mass Index (BMI) 34.2 Intake and Output for Last 24 Hours 04/15/20 04/16/20 04/17/20 23:59 23:59 23:59 Intake Total 2480.0 / 2480.0 1000 / 1000 Output Total 400 / 400 400 / 400 Balance 2080.0 / 2080.0 600 / 600 General: Alert, Oriented x3, Cooperative HEENT: Atraumatic, PERRLA, EOMI, Normocephalic Neck: Supple, No JVD, Negative Carotid Bruits Lungs: Clear to auscultation, Normal air movement Cardiovascular: Regular rate, No murmurs Abdomen: Bowel Sounds Present, Soft, Non Tender Extremities: No edema, Capillary Refill Less than 3 Seconds Skin: No rashes, No breakdown Musculoskeletal: No Tenderness to Palpation of Joints or Extremities Neurological: Cranial nerves II-XII grossly intact Psych/Mental Status: Normal Affect, Appropriate Laboratory Results 04/16/20 11:45: Vag Amniotic Fld Detect Negative 04/16/20 12:35: WBC 20.3 H, RBC 4.06 L, Hgb 11.7 L, Hct 35.8 L, MCV 88.2, MCH 28.8, MCHC 32.7, RDW Std Deviation 43.2, RDW Coeff of Janae 13.3, Plt Count 187, MPV 13.9 H, Immature Gran % (Auto) 0.800, Neut % (Auto) 86.1 H, Lymph % (Auto) 6.0 L, [place] % (Auto) 7.0, Eos % (Auto) 0.0, Baso % (Auto) 0.1, Absolute Neuts (auto) 17.5 H, Absolute Lymphs (auto) 1.22, Nucleated RBC % 0 04/16/20 12:35: Blood Type O POSITIVE, Antibody Screen NEGATIVE 04/16/20 13:55: COVID-19 (ARIADNA) Negative Current Medications Acetaminophen (Tylenol) 325 - 650 mg PO Q4H PRN PRN PRN Reason: Pain Score 1-3/10 Last Admin: 04/16/20 18:55 Dose: 650 mg Documented by: Al Hydroxide/Mg Hydroxide (Mylanta Ii) 15 - 30 ml PO Q4H PRN PRN PRN Reason: INDIGESTION Citric Acid/Sodium Citrate (Bicitra) 30 ml PO X1 PRN PRN Reason: Section Ephedrine Sulfate () 10 mg IV Q10M PRN PRN Reason: hypotension Ephedrine Sulfate () 10 mg IM Q30M PRN PRN Reason: hypotension Fentanyl Citrate (Sublimaze (100mcg Ampule)) 25 - 50 mcg IV Q2H PRN PRN PRN Reason: Pain Score 4-10/10 Fentanyl/Bupivacaine/Sodium Chlor () 0 ml EPIDURAL UD [facility]; Protocol Last Admin: 04/17/20 04:27 Dose: 100 ml Documented by: Lactated Ringer's () 500 mls @ 999 mls/hr IV .Q31M PRN PRN Reason: Epidural Last Infusion: 04/16/20 13:39 Dose: Infused Documented by: Lactated Ringer's () 500 mls @ 999 mls/hr IV .Q31M PRN PRN Reason: Corrective Measures Lactated Ringer's () 1,000 mls @ 50 mls/hr IV .Q20H LORENZA Last Admin: 04/17/20 06:00 Dose: 200 mls/hr Documented by: Naloxone HCl 4 mg/ Dextrose 504 mls @ 0 mls/hr IV .Q0M PRN; Protocol PRN Reason: To maintain Resp. rate >10 Nalbuphine HCl (Nubain) 5 mg IV Q3H PRN PRN PRN Reason: ITCHING Naloxone HCl (Narcan) 0.02 mg IV Q1M PRN PRN Reason: RR< 10 AND PT UNRESPONSIVE Ondansetron HCl (Zofran) 4 mg IV Q4H PRN PRN PRN Reason: NAUSEA Last Admin: 04/17/20 04:27 Dose: 4 mg Documented by: Prochlorperazine Edisylate (Compazine Iv) 10 mg IV Q6H PRN PRN PRN Reason: NAUSEA Last Admin: 04/16/20 19:49 Dose: 10 mg Documented by: Sodium Chloride () 10 - 40 ml IV X1 PRN PRN Reason: SALINE FLUSH Last Admin: 04/17/20 01:15 Dose: 10 ml Documented by: Medical Necessity - Tobacco Use Smoking Status: Former smoker Assessment/Plan All Active Problems Moderate cervical dysplasia (Acute) 40 weeks gestation of (Acute) A/P: SVE /+1, prolonged at 8.5-9cm Direction to RN to use 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
[2020-04-17] MEDS: 0.9% Saline Lock 10 ML Syringe IV ×2 (01:15→09:38)
--- NOTE | 2020-04-17 03:40 | PCM.PN.OB ---
Patient Problems: Active and Suspected Problems 40 weeks gestation of (Acute) Subjective: Epidural is working well. Denies pain. Objective: VSS. SVE 10/100/+1. FHR NST baseline 145, +accels, -decels, moderate variability - Physical Exam Vitals/I&O's: Vital Signs Temp Pulse BP Pulse Ox 99.0 F 81 120/68 97 04/17/20 06:14 04/17/20 06:14 04/17/20 06:14 04/17/20 06:14 Weight: 85 kg Body Mass Index (BMI) 34.2 Intake and Output for Last 24 Hours 04/15/20 04/16/20 04/17/20 23:59 23:59 23:59 Intake Total 2480.0 / 2480.0 1000 / 1000 Output Total 400 / 400 400 / 400 Balance 2080.0 / 2080.0 600 / 600 General: Alert, Oriented x3, Cooperative HEENT: Atraumatic, PERRLA, EOMI, Normocephalic Neck: Supple, No JVD, Negative Carotid Bruits Lungs: Clear to auscultation, Normal air movement Cardiovascular: Regular rate, No murmurs Abdomen: Bowel Sounds Present, Soft, Non Tender Extremities: No edema, Capillary Refill Less than 3 Seconds Skin: No rashes, No breakdown Musculoskeletal: No Tenderness to Palpation of Joints or Extremities Neurological: Cranial nerves II-XII grossly intact Psych/Mental Status: Normal Affect, Appropriate Laboratory Results 04/16/20 11:45: Vag Amniotic Fld Detect Negative 04/16/20 12:35: WBC 20.3 H, RBC 4.06 L, Hgb 11.7 L, Hct 35.8 L, MCV 88.2, MCH 28.8, MCHC 32.7, RDW Std Deviation 43.2, RDW Coeff of Janae 13.3, Plt Count 187, MPV 13.9 H, Immature Gran % (Auto) 0.800, Neut % (Auto) 86.1 H, Lymph % (Auto) 6.0 L, Ashley % (Auto) 7.0, Eos % (Auto) 0.0, Baso % (Auto) 0.1, Absolute Neuts (auto) 17.5 H, Absolute Lymphs (auto) 1.22, Nucleated RBC % 0 04/16/20 12:35: Blood Type O POSITIVE, Antibody Screen NEGATIVE 04/16/20 13:55: COVID-19 (ARIADNA) Negative Current Medications Acetaminophen (Tylenol) 325 - 650 mg PO Q4H PRN PRN PRN Reason: Pain Score 1-3/10 Last Admin: 04/16/20 18:55 Dose: 650 mg Documented by: Al Hydroxide/Mg Hydroxide (Mylanta Ii) 15 - 30 ml PO Q4H PRN PRN PRN Reason: INDIGESTION Citric Acid/Sodium Citrate (Bicitra) 30 ml PO X1 PRN PRN Reason: Section Ephedrine Sulfate () 10 mg IV Q10M PRN PRN Reason: hypotension Ephedrine Sulfate () 10 mg IM Q30M PRN PRN Reason: hypotension Fentanyl Citrate (Sublimaze (100mcg Ampule)) 25 - 50 mcg IV Q2H PRN PRN PRN Reason: Pain Score 4-10/10 Fentanyl/Bupivacaine/Sodium Chlor () 0 ml EPIDURAL UD [facility]; Protocol Last Admin: 04/17/20 04:27 Dose: 100 ml Documented by: Lactated Ringer's () 500 mls @ 999 mls/hr IV .Q31M PRN PRN Reason: Epidural Last Infusion: 04/16/20 13:39 Dose: Infused Documented by: Lactated Ringer's () 500 mls @ 999 mls/hr IV .Q31M PRN PRN Reason: Corrective Measures Lactated Ringer's () 1,000 mls @ 50 mls/hr IV .Q20H LORENZA Last Admin: 04/17/20 06:00 Dose: 200 mls/hr Documented by: Naloxone HCl 4 mg/ Dextrose 504 mls @ 0 mls/hr IV .Q0M PRN; Protocol PRN Reason: To maintain Resp. rate >10 Nalbuphine HCl (Nubain) 5 mg IV Q3H PRN PRN PRN Reason: ITCHING Naloxone HCl (Narcan) 0.02 mg IV Q1M PRN PRN Reason: RR< 10 AND PT UNRESPONSIVE Ondansetron HCl (Zofran) 4 mg IV Q4H PRN PRN PRN Reason: NAUSEA Last Admin: 04/17/20 04:27 Dose: 4 mg Documented by: Prochlorperazine Edisylate (Compazine Iv) 10 mg IV Q6H PRN PRN PRN Reason: NAUSEA Last Admin: 04/16/20 19:49 Dose: 10 mg Documented by: Sodium Chloride () 10 - 40 ml IV X1 PRN PRN Reason: SALINE FLUSH Last Admin: 04/17/20 01:15 Dose: 10 ml Documented by: Medical Necessity - Tobacco Use Smoking Status: Former smoker Assessment/Plan All Active Problems Moderate cervical dysplasia (Acute) 40 weeks gestation of (Acute) A/P: Complete dilation after several hours at 8.5 and position changes CNM far left tilt with peanut ball and far left fire hydrant Pushing to begin with RN and CNM to bedside when appropriate
[2020-04-17] MEDS: Ondansetron 4 MG/2 ML Vial IV (04:27)
[2020-04-17] MEDS: fentaNYL-bupivacaine (epidural) 100 ML BAG EPIDURAL (04:27)
[2020-04-17] MEDS: Lactated Ringers 1,000 ML 200 ML IV (06:00)
--- NOTE | 2020-04-17 06:05 | PCM.PN.OB ---
Patient Problems: Active and Suspected Problems 40 weeks gestation of (Acute) Subjective: Not feeling any pain, mild pressure at the peak of contractions 11/19. Objective: VSS. NST Category II with variable and late decels noted, FHR baseline 140 with moderate variability. SVE 10/100/+3 - Physical Exam Vitals/I&O's: Vital Signs Temp Pulse BP Pulse Ox 99.0 F 81 120/68 97 04/17/20 06:14 04/17/20 06:14 04/17/20 06:14 04/17/20 06:14 Weight: 85 kg Body Mass Index (BMI) 34.2 Intake and Output for Last 24 Hours 04/15/20 04/16/20 04/17/20 23:59 23:59 23:59 Intake Total 2480.0 / 2480.0 1000 / 1000 Output Total 400 / 400 400 / 400 Balance 2080.0 / 2080.0 600 / 600 General: Alert, Oriented x3, Cooperative HEENT: Atraumatic, PERRLA, EOMI, Normocephalic Neck: Supple, No JVD, Negative Carotid Bruits Lungs: Clear to auscultation, Normal air movement Cardiovascular: Regular rate, No murmurs Abdomen: Bowel Sounds Present, Soft, Non Tender Extremities: No edema, Capillary Refill Less than 3 Seconds Skin: No rashes, No breakdown Musculoskeletal: No Tenderness to Palpation of Joints or Extremities Neurological: Cranial nerves II-XII grossly intact Psych/Mental Status: Normal Affect, Appropriate Laboratory Results 04/16/20 11:45: Vag Amniotic Fld Detect Negative 04/16/20 12:35: WBC 20.3 H, RBC 4.06 L, Hgb 11.7 L, Hct 35.8 L, MCV 88.2, MCH 28.8, MCHC 32.7, RDW Std Deviation 43.2, RDW Coeff of Janae 13.3, Plt Count 187, MPV 13.9 H, Immature Gran % (Auto) 0.800, Neut % (Auto) 86.1 H, Lymph % (Auto) 6.0 L, [place] % (Auto) 7.0, Eos % (Auto) 0.0, Baso % (Auto) 0.1, Absolute Neuts (auto) 17.5 H, Absolute Lymphs (auto) 1.22, Nucleated RBC % 0 04/16/20 12:35: Blood Type O POSITIVE, Antibody Screen NEGATIVE 04/16/20 13:55: COVID-19 (ARIADNA) Negative Current Medications Acetaminophen (Tylenol) 325 - 650 mg PO Q4H PRN PRN PRN Reason: Pain Score 1-3/10 Last Admin: 04/16/20 18:55 Dose: 650 mg Documented by: Al Hydroxide/Mg Hydroxide (Mylanta Ii) 15 - 30 ml PO Q4H PRN PRN PRN Reason: INDIGESTION Citric Acid/Sodium Citrate (Bicitra) 30 ml PO X1 PRN PRN Reason: Section Ephedrine Sulfate () 10 mg IV Q10M PRN PRN Reason: hypotension Ephedrine Sulfate () 10 mg IM Q30M PRN PRN Reason: hypotension Fentanyl Citrate (Sublimaze (100mcg Ampule)) 25 - 50 mcg IV Q2H PRN PRN PRN Reason: Pain Score 4-10/10 Fentanyl/Bupivacaine/Sodium Chlor () 0 ml EPIDURAL UD [facility]; Protocol Last Admin: 04/17/20 04:27 Dose: 100 ml Documented by: Lactated Ringer's () 500 mls @ 999 mls/hr IV .Q31M PRN PRN Reason: Epidural Last Infusion: 04/16/20 13:39 Dose: Infused Documented by: Lactated Ringer's () 500 mls @ 999 mls/hr IV .Q31M PRN PRN Reason: Corrective Measures Lactated Ringer's () 1,000 mls @ 50 mls/hr IV .Q20H LORENZA Last Admin: 04/17/20 06:00 Dose: 200 mls/hr Documented by: Naloxone HCl 4 mg/ Dextrose 504 mls @ 0 mls/hr IV .Q0M PRN; Protocol PRN Reason: To maintain Resp. rate >10 Nalbuphine HCl (Nubain) 5 mg IV Q3H PRN PRN PRN Reason: ITCHING Naloxone HCl (Narcan) 0.02 mg IV Q1M PRN PRN Reason: RR< 10 AND PT UNRESPONSIVE Ondansetron HCl (Zofran) 4 mg IV Q4H PRN PRN PRN Reason: NAUSEA Last Admin: 04/17/20 04:27 Dose: 4 mg Documented by: Prochlorperazine Edisylate (Compazine Iv) 10 mg IV Q6H PRN PRN PRN Reason: NAUSEA Last Admin: 04/16/20 19:49 Dose: 10 mg Documented by: Sodium Chloride () 10 - 40 ml IV X1 PRN PRN Reason: SALINE FLUSH Last Admin: 04/17/20 01:15 Dose: 10 ml Documented by: Medical Necessity - Tobacco Use Smoking Status: Former smoker Assessment/Plan All Active Problems Moderate cervical dysplasia (Acute) 40 weeks gestation of (Acute) A/P: Patient has been pushing for two and half hours Good maternal effort Epidural is effective for pain management FHR Category II with variables and lates noted for the last ten minutes Will continue position changes and update attending Dr. Gongora
[2020-04-17] MEDS: Oxytocin 30 units/NS 500 ml 30 UNITS/500 ML IV.SOLN 334 UNITS IV (07:20)
--- NOTE | 2020-04-17 07:34 | PCM.OPRPT ---
Vaginal Delivery Maternal Presentation: Active Labor Amniotic Membrane Rupture Type: Artificial Amniotic Fluid Description: Clear Final HUMAIRA: 04/13/20 Final HUMAIRA Source: US <20 weeks Gestational age: 40 Weeks and 4 Days Date of Procedure: 04/17/20 Pre-Operative Diagnosis: IUP Post-Operative Diagnosis: IUP Surgery/ Procedure Performed: Vacuum Assisted Vaginal Delivery Type of Anesthesia: Epidural Description of Procedure: Spontaneous vaginal delivery of a viable male with Apgars of 9/10 from an occiput anterior presentation with clear amniotic fluid and normal three-vessel placenta. Nuchal arm. No episiotomy. Second-degree midline laceration repaired with 3-0 Rapide suture under epidural. Kiwi vacuum used x3 gentle pulls from low outlet to expedite delivery of the head after approximately 4 hours of pushing, increasing maternal fatigue, and deep variable decelerations with pushing. No pop offs. Sponges okay. Delivery physician: William Gongora MD. Presentation: Vertex Placental Delivery Description: Spontaneous Placenta Disposition: [facility] Cord Vessel Description: 3 Vessels Estimated Blood Loss: 250 cc A gender: Male (1 minute): 9 (5 minute): 10 Episiotomy Description: None Laceration: Midline, 2nd degree Medications given after delivery: IV Pitocin Complications: None
[2020-04-17] MEDS: Ibuprofen 600 MG Tablet PO ×2 (09:35→20:40)
[2020-04-18] MEDS: Acetaminophen 500 MG Tablet 1000 MG PO ×2 (01:32→10:41)
[2020-04-18 04:21] VITALS: BP 117/68; PULSE 80; RESP 16; TEMP 36.7; O2SAT 98
[2020-04-18] MEDS: Ibuprofen 600 MG Tablet PO ×2 (04:22→20:17)
--- NOTE | 2020-04-18 08:28 | PCM.PN.OB ---
Patient Problems: Active and Suspected Problems 40 weeks gestation of (Acute) Subjective: Feeling sore, but overall okay. Anxiety over son being underneath bili lights. Denies heavy bleeding, pain or any concerns. Reports urinating well, passing flatus and tolerating a regular diet. Has been up in her room ambulating. Objective: VSS. Fundus is firm, midline, u/1. Lochia rubra moderate - Physical Exam Vitals/I&O's: Vital Signs Temp Pulse Resp BP Pulse Ox 98.0 F 80 16 117/68 98 04/18/20 04:21 04/18/20 04:21 04/18/20 04:21 04/18/20 04:21 04/18/20 04:21 Oxygen Delivery Method Room Air Weight: 85 kg Body Mass Index (BMI) 34.2 Intake and Output for Last 24 Hours 04/16/20 04/17/20 04/18/20 23:59 23:59 23:59 Intake Total 2480.0 / 2480.0 2145.33 / 2145.33 Output Total 400 / 400 1200 / 1200 Balance 2080.0 / 2080.0 945.33 / 945.33 General: Alert, Oriented x3, Cooperative HEENT: Atraumatic, PERRLA, EOMI, Normocephalic Neck: Supple, No JVD, Negative Carotid Bruits Lungs: Clear to auscultation, Normal air movement Cardiovascular: Regular rate, No murmurs Abdomen: Bowel Sounds Present, Soft, Non Tender Extremities: No edema, Capillary Refill Less than 3 Seconds Skin: No rashes, No breakdown Musculoskeletal: No Tenderness to Palpation of Joints or Extremities Neurological: Cranial nerves II-XII grossly intact Psych/Mental Status: Normal Affect, Appropriate Current Medications Acetaminophen (Tylenol) 1,000 mg PO Q8H PRN PRN PRN Reason: Pain Score 1-3 Last Admin: 04/18/20 01:32 Dose: 1,000 mg Documented by: Bisacodyl (Dulcolax) 10 mg RECTAL UD PRN PRN Reason: If no BM Hydrocortisone (Hytone) 1 applic TOPICAL TID PRN PRN; Protocol PRN Reason: Discomfort Ibuprofen (Motrin) 600 mg PO Q6H PRN PRN PRN Reason: Pain Score 1-3 Last Admin: 04/18/20 04:22 Dose: 600 mg Documented by: Methylergonovine Maleate (Methergine) 0.2 mg IM X1 PRN PRN Reason: Excess bleeding/uterine atony Ondansetron HCl (Zofran) 4 mg IV Q4H PRN PRN PRN Reason: Nausea Oxycodone HCl (Oxyir) 5 - 10 mg PO Q4H PRN PRN PRN Reason: Pain Score 4-10/10 Senna/Docusate Sodium (Senokot-S, Merari-Colace) 1 - 2 tablet PO DAILY PRN PRN PRN Reason: Constipation Simethicone (Mylicon) 80 mg PO PCHS PRN PRN Reason: Indigestion/Stomach pain Sodium Chloride () 5 - 15 ml IV UD PRN PRN Reason: SALINE FLUSH Last Admin: 04/17/20 09:38 Dose: 10 ml Documented by: Throat Lozenges (Dermoplast (Sp)) 1 applic TOPICAL 4X/DAY PRN PRN; Protocol PRN Reason: Pain/Inflammation Last Admin: 04/18/20 01:36 Dose: 1 applic Documented by: Medical Necessity - Tobacco Use Smoking Status: Former smoker Assessment/Plan All Active Problems Moderate cervical dysplasia (Acute) 40 weeks gestation of (Acute) A/P: S/P vacuum assisted delivery day #1 mother Normal involution and course is under bilirubin lights for jaundice currently, discussed if he has to stay and hotel status Continue orders Expect discharge tomorrow or will discharge to hotel status
--- NOTE | 2020-04-18 08:31 | DCINST_ITS ---
Discharge Diet: No Restrictions Discharge Activity: Return to Normal Activity, May not drive while taking narcotic pain medications., May Shower May resume sexual activity in: 4-6 weeks Additional Activity Instructions:: Nothing in the vagina for 4-6 weeks. You may return to work/school in 6 weeks. Call your doctor if your incision/area has: Continuous Slow Oozing, Sudden Increased Bleeding, Increased Pain/ Swelling, Increased Redness, Foul Smelling Discharge Additional Instructions: If you experience any of the following, contact your healthcare provider. * Bleeding that soaks a pad every hour for 2 hours * Fever 100.4 or higher * Unrelieved incision or abdominal pain * Swelling, redness, discharge or bleeding from your incision or episiotomy site * Your incision begins to separate * Problems urinating (including inability to urinate or burning while urinating). * Visual changes * Severe headache * Flu-like symptoms * Pain or redness in one of both of your breasts * Pain, warmth, tenderness or swelling in your legs, especially the calf area * Frequent nausea and vomiting * Symptoms of depression or anxiety If you experience any of the following, call 911 or go to the nearest Emergency Room. * Chest pain * Problems breathing * Seizure activity * Partial or complete paralysis of a body part, slurred speech, weakness or drooping of the face, or a sudden inability to walk or hold your balance Allergies/Adverse Reactions: Allergies hydrocodone [From Vicodin] Adverse Reaction (Verified 04/16/20 03:39) Vomiting oxycodone [From Percocet] Adverse Reaction (Verified 04/16/20 03:39) Vomiting Medications to take at Discharge Acetaminophen [Tylenol] 325 mg PO 04/16/20 Pnv No.95/Ferrous Fum/Folic AC [ Caplet] 1 tab PO DAILY 04/16/20 Zolpidem Tartrate [Ambien (Generic)] 5 mg PO QHS PRN PRN #2 tab 04/16/20 The following prescriptions were given: Zolpidem Tartrate [Ambien (Generic)] 5 mg PO QHS PRN PRN #2 tab PRN Reason: Sleep Transmission Status: Received by [facility] Please Follow Up With: Susana Tejada CNM When: Call to make a [facility] 2 week check up and a 6 week routine appointment with your CNM. If any signs of depression to call immediately! Primary Care Physician: Waleska Torres, [Primary Care Provider] - Test Results: Test results from this visit will be discussed in further detail at your follow- up appointment, if applicable.
[2020-04-18 09:16] VITALS: BP 114/74; PULSE 72; RESP 14; TEMP 36.2
[2020-04-18 14:20] VITALS: BP 130/65; PULSE 75; RESP 14; TEMP 36.9
[2020-04-18 20:00] VITALS: BP 121/81; PULSE 74; RESP 16; TEMP 36.9
[2020-04-19 02:00] VITALS: BP 118/78; PULSE 80; RESP 16; TEMP 36.7
[2020-04-19] MEDS: Ibuprofen 600 MG Tablet PO (06:12)
[2020-04-19] MEDS: Acetaminophen 500 MG Tablet 1000 MG PO (06:13)
[2020-04-19 08:10] VITALS: BP 117/87; PULSE 94; RESP 16; TEMP 36.7
--- NOTE | 2020-04-19 10:45 | PCM.PN.OB ---
Patient Problems: Active and Suspected Problems 40 weeks gestation of (Acute) Subjective: Reports intermittent cramping, but it is tolerable. Denies heavy lochia. is nursing well and Xiomy has started pumping. No voiding difficulties. Objective: AVSS - Physical Exam Vitals/I&O's: Vital Signs Temp Pulse Resp BP Pulse Ox 98.1 F 94 16 117/87 H 98 04/19/20 08:10 04/19/20 08:10 04/19/20 08:10 04/19/20 08:10 04/18/20 04:21 Oxygen Delivery Method Room Air Weight: 85 kg Body Mass Index (BMI) 34.2 Intake and Output for Last 24 Hours 04/17/20 04/18/20 04/19/20 23:59 23:59 23:59 Intake Total 2145.33 / 2145.33 Output Total 1200 / 1200 Balance 945.33 / 945.33 General: Alert, Oriented x3, Cooperative, No apparent distress HEENT: Atraumatic, Normocephalic Lungs: Clear to auscultation, Normal air movement Cardiovascular: Regular rate, Regular Rhythm, Normal S1, Normal S2 Abdomen: Soft, Non Tender, Non-Distended, - - Fundus firm and nontender, Extremities: No Calf Tenderness, - - trace b/l LE edema Neurological: Neuro grossly intact Psych/Mental Status: Normal Affect, Appropriate, Alert and oriented to time, place, person, mood and affect Current Medications Acetaminophen (Tylenol) 1,000 mg PO Q8H PRN PRN PRN Reason: Pain Score 1-310 Last Admin: 04/19/20 06:13 Dose: 1,000 mg Documented by: Bisacodyl (Dulcolax) 10 mg RECTAL UD PRN PRN Reason: If no BM Hydrocortisone (Hytone) 1 applic TOPICAL TID PRN PRN; Protocol PRN Reason: Discomfort Ibuprofen (Motrin) 600 mg PO Q6H PRN PRN PRN Reason: Pain Score 1-3/10 Last Admin: 04/19/20 06:12 Dose: 600 mg Documented by: Methylergonovine Maleate (Methergine) 0.2 mg IM X1 PRN PRN Reason: Excess bleeding/uterine atony Ondansetron HCl (Zofran) 4 mg IV Q4H PRN PRN PRN Reason: Nausea Oxycodone HCl (Oxyir) 5 - 10 mg PO Q4H PRN PRN PRN Reason: Pain Score 4-10/10 Senna/Docusate Sodium (Senokot-S, Merari-Colace) 1 - 2 tablet PO DAILY PRN PRN PRN Reason: Constipation Simethicone (Mylicon) 80 mg PO PCHS PRN PRN Reason: Indigestion/Stomach pain Sodium Chloride () 5 - 15 ml IV UD PRN PRN Reason: SALINE FLUSH Last Admin: 04/17/20 09:38 Dose: 10 ml Documented by: Throat Lozenges (Dermoplast (Sp)) 1 applic TOPICAL 4X/DAY PRN PRN; Protocol PRN Reason: Pain/Inflammation Last Admin: 04/18/20 01:36 Dose: 1 applic Documented by: Medical Necessity - Tobacco Use Smoking Status: Former smoker Assessment/Plan All Active Problems Moderate cervical dysplasia (Acute) 40 weeks gestation of (Acute) PPD#2 s/p VAVD doing well. -Rh positive - -Doing well -d/c home
[2020-04-19] MEDS: Senna/Docusate Sodium 1 Tablet PO (10:58)
[2020-04-19 14:35] VITALS: BP 136/88; PULSE 88; RESP 16; TEMP 37.2
== END 2020-04-19 15:05 | disposition home or self-care (01) | DRG 807 ==
LOC: WPOUT 11:42 → WP 11:42
PROVIDERS: Obstetrics & Gynecology; Admitting Provider Obstetrics & Gynecology; Referring Provider Obstetrics & Gynecology; Visit Provider Obstetrics & Gynecology
DX: O69.81X0 Labor and delivery complicated by cord around neck, without compression, not applicable or unspecified (principal); Z37.0 Single live birth; O76 Abnormality in fetal heart rate and rhythm complicating labor and delivery; O70.1 Second degree perineal laceration during delivery; Z3A.40 40 weeks gestation of pregnancy
CPT/HCPCS: 59025; 59050; 84112; 85025; 86850; 86900; 86901; 87635; 99218; G2023; J7120; A4216; G0378; J2405; U0003

== ENCOUNTER → 2020-12-22 | Outpatient (CLI) | payer BC, SELFPAY ==
[2020-04-16 03:40] VITALS: BMI 34.2
[2020-12-26 13:37] LABS: HPV APTIMA, High Risk Negative (Negative)
== END | disposition home or self-care (01) ==
LOC: LABSPEC 16:55
PROVIDERS: Visit Provider Student in an Organized Health Care Education/Training Program
DX: Z12.4 Encounter for screening for malignant neoplasm of cervix (principal)
CPT/HCPCS: 87624; 88175; G0145

== ENCOUNTER 2021-12-29 16:29 | Outpatient (CLI) | payer BC, SELFPAY ==
[2021-12-29 17:39] LABS: Color, Urine Yellow (Yellow); Glucose, Dipstick Normal (Normal); Ketone-Dipstick Negative (Negative); Leukocyte Esterase-Dipstick Negative /ul (Negative); Nitrite-Dipstick Negative (Negative); Occult Blood-Urine 25 /ul (Negative); Protein-Dipstick 15 mg/dl (Negative); Specific Gravity, Urine 1.025 (1.002-1.030); Urine Bilirubin Dipstick Negative (Negative); Urine Clarity Sl. Cloudy (Clear); Urine Urobilinogen Normal (Normal)
[2021-12-29 17:40] LABS: Absolute Lymphocyte Count 1.83 X10^3/uL (0.83-4.51); Absolute Neutrophil Count 8.2 X10^3/uL (2.0-7.7); Basophil# 0.04 X10^3/uL; Basophil% 0.4 % (0-1); Eosinophil# 0.24 X10^3/uL; Eosinophils% 2.2 % (0-5); Hematocrit 37.2 % (37-47); Hemoglobin 12.6 g/dL (12.0-15.0); Lymphocyte # 1.83 X10^3/ul (0.83-4.51); Lymphocyte % 16.6 % (19-41); Mean Corp Hgb Conc 33.9 g/dL (32-36); Mean Corpuscular Hgb 29.4 pg (27.0-32.0); Mean Corpuscular Volume 86.9 fL (81-99); Mean Platelet Vol. 13.6 fl (6.2-12.0); Monocyte# 0.69 X10^3/uL; Monocyte% 6.3 % (0-10); NRBC Flagged by Analyzer 0 % (0-5); Neutrophil # 8.21 X10^3/uL (2.7-7.7); Neutrophil % 74.2 % (47-70); POSITIVE COUNT YES; RBC Distribution Width CV 13.1 % (11.6-14.6); RBC Distribution Width SD 41.1 fl (35.1-43.9); Red Blood Count 4.28 M/mm3 (4.2-5.4)
[2021-12-29 17:45] LABS: Amphetamine Urine VISTA NEGATIVE (<1000 ng/mL); Barbiturate Urine VISTA NEGATIVE (< 200 ng/mL); Benzodiazepine Urine VISTA NEGATIVE (< 200 ng/mL); Cocaine Urine VISTA NEGATIVE (< 300 ng/mL); Ecstacy Urine VISTA NEGATIVE (< 500 ng/mL); Methadone Urine VISTA NEGATIVE (< 300 ng/mL); PCP Urine VISTA NEGATIVE (< 25 ng/mL); THC Urine VISTA NEGATIVE (< 50 ng/mL); Vista UDS pH Range 6
[2021-12-29 17:59] LABS: Differential Indicated SCAN CRITERIA MET
[2021-12-29 18:16] LABS: Thyroid Stim Hormone (TSH) 1.76 uIU/mL (0.358-3.74)
[2021-12-29 18:30] LABS: Differential Comment SCANNED; Platelet Estimate ADEQUATE (ADEQ)
[2021-12-30 10:51] LABS: HIV - WCH Non-Reactive (Nonreactive); Hepatitis B Surface Antigen Non-Reactive (Nonreactive); Hepatitis C Antibody Non-Reactive (Nonreactive); Rubella IgG Reactive (Nonreactive); Syphilis Antibodies Non-reactive
[2022-01-01 00:07] LABS: Chlamydia By Nucleic Acid AMP Negative (Negative)
[2022-01-01 09:13] LABS: Gonococcus By Nucleic Acid AMP Negative (Negative)
== END 2021-12-29 23:59 | disposition home or self-care (01) ==
LOC: WOBLAB 16:32
PROVIDERS: Visit Provider Obstetrics & Gynecology
DX: Z34.81 Encounter for supervision of other normal pregnancy, first trimester (principal)
CPT/HCPCS: 36415; 80307; 81002; 84443; 85025; 86703; 86762; 86780; 86803; 87086; 87088; 87340; 87491; 87591

== ENCOUNTER 2022-08-13 14:30 | Inpatient (IN) | payer BC, SELFPAY ==
[2022-08-13] VITALS (61 sets, daily range): BP systolic 121–182; BP diastolic 62–112; PULSE 69–127; TEMP 36.1–37.1; O2SAT 91–100; BMI 36.9
[2022-08-13] MEDS: Lactated Ringers 1,000 ML 50 ML IV (15:20)
--- NOTE | 2022-08-13 15:20 | PCM.HP.OB ---
HPI - General General Date of Admission: 08/13/22 HPI Narrative KODY EARL, is a 32 F who presents at 41 weeks for induction of labor for gestational HTN. Presented to office for BPP and BP elevated 146/76. Decision to send to labor and delivery for induction of labor. Maternal Data Information Final HUMAIRA: 08/06/22 Gestational age: 41 weeks PFSH PFSH Medical History Gestational HTN Home Medications vit no.95-ferrous fumarate 28 mg-folic acid 800 mcg tablet 1 tab PO DAILY Check with primary doctor 04/16/20 [History Last Taken 08/12/22] iron 45 mg anemia 08/13/22 [History Last Taken 08/12/22] Allergy/AdvReac Type Severity Reaction Status Date / Time Environmental Allergies: Allergy Other Verified 08/13/22 15:46 Uncoded [metal] hydrocodone [From Vicodin] AdvReac Vomiting Verified 08/13/22 15:46 oxycodone [From Percocet] AdvReac Vomiting Verified 08/13/22 15:46 Surgical History H/O LEEP History of surgery Social History Smoking Status: Former smoker History Elective abortions Hx Para 1 Spontaneous abortions Hx # Term Pregnancies Ectopic pregnancies Hx # Pregnancies Multiple births # of living children NST FHR Rate Baby A Baseline: 140 Variability:: Moderate Accelerations:: 15 x 15 Decelerations:: None FHR Category:: Category I Uterine Activity:: Irregular ROS Constitutional Constitutional: Reports systems reviewed and no addt'l complaints, except as documented; Denies headache(s) Eyes Eyes: Denies acute decrease in peripheral vision, blurry vision or change in vision ENT HEENT: Reports systems reviewed and no addt'l complaints, except as documented Cardiovascular Cardiovascular: Denies chest pain or dizziness Respiratory/Chest Respiratory/Chest: Denies cough, dyspnea, dyspnea on exertion, shortness of breath at rest or shortness of breath with exertion Gastrointestinal Gastrointestinal: Denies abdominal pain, diarrhea, nausea or vomiting Genitourinary Genitourinary: Denies abdominal discomfort Musculoskeletal Musculoskeletal: Denies limited range of motion Integumentary Integumentary: Reports systems reviewed and no addt'l complaints, except as documented Neurologic Neurologic: Reports systems reviewed and no addt'l complaints, except as documented Psychiatric Psychiatric: Reports systems reviewed and no addt'l complaints, except as documented Endocrine Endocrinology: Reports systems reviewed and no addt'l complaints, except as documented Hematologic/Lymphatic Hematologic/Lymphatic: Reports systems reviewed and no addt'l complaints, except as documented Allergic/Immunologic Allergic/Immunologic: Reports systems reviewed and no addt'l complaints, except as documented Vital Signs Vital Signs Vital Signs: 08/13/22 15:00 08/13/22 15:00 Pulse Rate 94 Blood Pressure 125/78 H BP Systolic 125 BP Diastolic 78 Physical Exam Const alert and oriented x3 General Appearance: cooperative Orientation / Consciousness: awake, oriented to person, oriented to place and oriented to time Exam Limitations: no limitations HEENT normocephalic Head and Scalp: normal to inspection, normocephalic and atraumatic Face and Sinus: normal facial exam Eyes General Eye: normal appearance of both eyes Neck full ROM Chest Chest: symmetrical chest wall rise Resp normal respiratory effort and normal air movement Auscultation: clear to auscultation bilaterally Cardio regular rate, regular rhythm, S1 normal heart sound, S2 normal heart sound, no murmurs, no rub, no gallops and no clicks GI normal to inspection, nondistended, normoactive bowel sounds and non-tender appearance of the vagina normal Bladder / Kidney Exam: no CVA tenderness Back/Spine normal ROM Extremity normal to inspection and full ROM General Extremity: edema bilateral (+1 pitting) lower extremity Skin no rashes or lesions noted Neuro oriented x3, CN's II-XII intact bilaterally and moves all extremities Sensorium / Orientation: awake, alert and oriented to person Motor Exam: clonus absent Deep Tendon Reflexes: Rt Patellar (L4): 3+ and Lt Patellar (L4): 3+ Labs Labs Labs: Blood Type O POSITIVE Antibody Screen NEGATIVE Hct 31.8 % (37-47) L Hgb 10.0 g/dL (12.0-15.0) L Syphilis Total Ab Non-reactive Rubella IgG Antibody Reactive (Nonreactive) Hep Bs Antigen Non-Reactive (Nonreactive) Chlamydia DNA (ARIADNA) Negative (Negative) Neisseria gonorrhoeae DNA (ARIADNA) Negative (Negative) HIV 1&2 Antibody Non-Reactive (Nonreactive) Glucose 1 Hr 50 gm 81 mg/dL (70-140) Rhogam given: No Miscellaneous Test Assessment & Plan (1) Moderate cervical dysplasia: COMMENT: 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
[2022-08-13] MEDS: 0.9% Normal Saline Single 100 ML IV.SOLN. INTRA-UTER (15:30)
[2022-08-13] MEDS: Oxytocin 15 Units/NS 250ml 15 UNITS/250 ML IV.SOLN 2 UNITS IV (15:40)
[2022-08-13 15:46] LABS: Absolute Lymphocyte Count 1.61 X10^3/uL (0.83-4.51); Absolute Neutrophil Count 6.6 X10^3/uL (2.0-7.7); Basophil# 0.02 X10^3/uL; Basophil% 0.2 % (0-1); Eosinophils% 1.1 % (0-5); Hematocrit 31.8 % (37-47); Lymphocyte # 1.61 X10^3/ul (0.83-4.51); Lymphocyte % 17.7 % (19-41); Mean Corp Hgb Conc 31.4 g/dL (32-36); Mean Corpuscular Hgb 25.8 pg (27.0-32.0); Mean Corpuscular Volume 82.2 fL (81-99); Monocyte# 0.67 X10^3/uL; Monocyte% 7.4 % (0-10); NRBC Flagged by Analyzer 0 % (0-5); Neutrophil # 6.62 X10^3/uL (2.7-7.7); Neutrophil % 72.9 % (47-70); Platelet Count 174 K/mm3 (150-450); RBC Distribution Width CV 14.2 % (11.6-14.6); RBC Distribution Width SD 41.3 fl (35.1-43.9); Red Blood Count 3.87 M/mm3 (4.2-5.4); White Blood Count 9.1 K/mm3 (4.4-11.0)
[2022-08-13 16:13] LABS: AST(SGOT) 13 U/L (15-37); Alanine Aminotransfer ALT/SGPT 11 U/L (13-56); Creatinine, Serum 0.87 mg/dL (0.55-1.02); EST Glomerular Filtration Rate 80 mL/min (>60); Est Glom Filt Rate - Afr Amer 97 mL/min (>60); Estimated Creatinine Clearance 73.42 ml/min; Uric Acid 6.9 mg/dL (2.6-6.0)
--- NOTE | 2022-08-13 18:27 | PN.OBGYN_ITS ---
Subjective Subjective Resting in bed, breathing through contractions. at bedside. Objective Data Objective Data Vital Signs: Vital Signs Temp Pulse BP Pulse Ox 98.2 F 69 135/82 H 100 08/13/22 17:45 08/13/22 17:46 08/13/22 17:46 08/13/22 17:45 Weight: 202 lb Body Mass Index (BMI) 36.9 Intake & Output: Intake and Output for Last 24 Hours 08/11/22 08/12/22 08/13/22 23:59 23:59 23:59 Intake Total 111.06 / 111.06 Balance 111.06 / 111.06 Lab / Micro Data Result Diagrams: 08/13/22 15:20 08/13/22 15:20 Labs: Laboratory Results - last 24 hr 08/13/22 15:20: WBC 9.1, RBC 3.87 L, Hgb 10.0 L, Hct 31.8 L, MCV 82.2, MCH 25.8 L, MCHC 31.4 L, RDW Std Deviation 41.3, RDW Coeff of Janae 14.2, Plt Count 174, Immature Gran % (Auto) 0.700, Neut % (Auto) 72.9 H, Lymph % (Auto) 17.7 L, [place] % (Auto) 7.4, Eos % (Auto) 1.1, Baso % (Auto) 0.2, Absolute Neuts (auto) 6.6, Absolute Lymphs (auto) 1.61, Nucleated RBC % 0 08/13/22 15:20: Blood Type O POSITIVE, Antibody Screen NEGATIVE 08/13/22 15:20: Creatinine 0.87, Estim Creat Clear Calc 73.42, Est GFR (MDRD) Af Amer 97, Est GFR (MDRD) Non-Af 80, Uric Acid 6.9 H, AST 13 L, ALT 11 L Micro: Microbiology 08/13/22 15:35 Nasal Secretion SARS-CoV-2 Antigen (Rapid) - Final Physical Exam Narrative 4cm/90/-1, AROM clear fluid NST FHR Rate Baby A Baseline: 135 Variability:: Absent Accelerations:: 15 x 15 Decelerations:: None FHR Category:: Category I Uterine Activity:: Irregular, strong Assessment & Plan (1) 40 weeks gestation of : (2) Post-dates : COMMENT: 41 weeks (3) Gestational HTN: (4) Positive GBS test: PLAN: Plan 1) AROM, clear fluid 2) Continue pitocin per protocol 3) GBS protocol 4) Category 1 FHT 5) Epidural for pain management
[2022-08-13] MEDS: LACTATED RINGERS 500 ML 999 ML IV (18:28)
[2022-08-13] MEDS: fentaNYL-bupivacaine (epidural) 100 ML BAG EPIDURAL (19:12)
[2022-08-13] MEDS: Ondansetron 4 MG/2 ML Vial IV (20:56)
[2022-08-13] MEDS: Penicillin G 3,000,000 Units 50 ML 100 UNITS IV (20:56)
[2022-08-13] MEDS: 0.9% Saline Lock 10 ML Syringe IV ×2 (20:56→23:26)
--- NOTE | 2022-08-13 22:17 | EX.PCM.OBRPT ---
Assessment & Plan (1) Vaginal delivery: (2) Second degree perineal laceration: (3) Lactating mother: Maternal Data Information Final HUMAIRA: 08/06/22 Gestational age: 41 weeks Vaginal Delivery Maternal Presentation Maternal Presentation: Medically Indicated Induction Type of Induction: Pitocin and Zhu Bulb Medical Reason for Induction: Gestational Hypertension Operative Information Date of Procedure: 08/13/22 Pre-Operative Diagnosis: GHTN, Induction of labor Post-Operative Diagnosis: , second degree perineal laceration Surgery / Procedure Performed: Spontaneous Vaginal Delivery Type of Anesthesia: Epidural Estimated Blood Loss: 350 ml Time of Delivery: 21:54 Findings Description of Procedure: Progressed to complete dilation.Epidural for pain management. of viable male over 2nd degree perineal laceration. APGARS 9,9 respectively. Infant head delivered with body immediately forthcoming. Placed on maternal abdomen, strong cry. Mouth and nares suctioned for secretions. Pitocin started for active 3rd stage management. Cord doubly clamped and cut by FOB after pulsations ceased, delayed cord clamping. Placenta delivered intact via reny, 3 vessel cord intact. Perineum inspected and revealed 2nd degree perineal laceration. Repaired with 3.0 vicryl rapide and lidocaine. Fundus firm and hemostasis achieved. EBL 350ml. Mom and baby stable, planning to breastfeed. Family bonding well. notified of delivery. Presentation: Vertex and ONOFRE Amniotic Membrane Rupture Type: Artificial Amniotic Fluid Description: Clear Placental Delivery Description: Spontaneous Placenta Disposition: [facility] Cord Vessel Description: 3 Vessels Cord Entanglement: None A Gender: Male (1 minute): 9 (5 minute): 9 Delayed Cord Clamping: Yes Post Vaginal Delivery Medications Given After Delivery: IV Pitocin Episiotomy Description: None Laceration: Perineal Extension/lac and 2nd degree Complication Complications: None
[2022-08-13 22:23] LABS: Protein, Urine (Random) 25.7 mg/dL (<11.9); Protein:Creat Ratio 103 mg/g CRE (0-200)
[2022-08-14] VITALS (8 sets, daily range): BP systolic 107–135; BP diastolic 62–90; PULSE 74–94; RESP 16–18; TEMP 36.2–36.7; O2SAT 97–98
[2022-08-14 05:40] LABS: Hematocrit 29.2 % (37-47); Hemoglobin 9.1 g/dL (12.0-15.0); Mean Corp Hgb Conc 31.2 g/dL (32-36); Mean Corpuscular Hgb 25.7 pg (27.0-32.0); Mean Corpuscular Volume 82.5 fL (81-99); Mean Platelet Vol. 14.2 fl (6.2-12.0); Platelet Count 152 K/mm3 (150-450); RBC Distribution Width CV 14.4 % (11.6-14.6); RBC Distribution Width SD 42.5 fl (35.1-43.9); Red Blood Count 3.54 M/mm3 (4.2-5.4)
[2022-08-14] MEDS: Acetaminophen 500 MG Tablet 1000 MG PO ×2 (09:27→21:41)
--- NOTE | 2022-08-14 15:22 | PCM.PN.OB ---
Subjective Subjective Doing well per patient and nursing staff. Ambulating and taking PO without difficulty. Voiding and passing flatus. Pain controlled. , pumping and bottle feeding due to nipple pain. Denies headache, visual changes, chest pain, shortness of breath, leg pain or increased bleeding. Lochia normal. Objective Data Objective Data Vital Signs: Vital Signs Temp Pulse Resp BP Pulse Ox O2 Del Method 97.5 F L 94 16 112/77 97 Room Air 08/14/22 12:00 08/14/22 12:00 08/14/22 12:00 08/14/22 12:00 08/14/22 12:00 08/14/22 12:00 Oxygen Delivery Method Room Air Weight: 202 lb Body Mass Index (BMI) 36.9 Intake & Output: Intake and Output for Last 24 Hours 08/12/22 08/13/22 08/14/22 23:59 23:59 23:59 Intake Total 1843.20 / 1843.20 Output Total 250 / 250 1000 / 1000 Balance 1593.20 / 1593.20 -1000 / -1000 Lab / Micro Data Result Diagrams: 08/14/22 05:15 08/13/22 15:20 Labs: Laboratory Results - last 24 hr 08/13/22 15:20: WBC 9.1, RBC 3.87 L, Hgb 10.0 L, Hct 31.8 L, MCV 82.2, MCH 25.8 L, MCHC 31.4 L, RDW Std Deviation 41.3, RDW Coeff of Janae 14.2, Plt Count 174, Immature Gran % (Auto) 0.700, Neut % (Auto) 72.9 H, Lymph % (Auto) 17.7 L, [place] % (Auto) 7.4, Eos % (Auto) 1.1, Baso % (Auto) 0.2, Absolute Neuts (auto) 6.6, Absolute Lymphs (auto) 1.61, Nucleated RBC % 0 08/13/22 15:20: Blood Type O POSITIVE, Antibody Screen NEGATIVE 08/13/22 15:20: Creatinine 0.87, Estim Creat Clear Calc 73.42, Est GFR (MDRD) Af Amer 97, Est GFR (MDRD) Non-Af 80, Uric Acid 6.9 H, AST 13 L, ALT 11 L 08/13/22 22:00: U Random Total Protein 25.7 H, Urine Creatinine 249.00, Protein/Creatinin Ratio 103 08/14/22 05:15: WBC 16.0 H, RBC 3.54 L, Hgb 9.1 L, Hct 29.2 L, MCV 82.5, MCH 25.7 L, MCHC 31.2 L, RDW Std Deviation 42.5, RDW Coeff of Janae 14.4, Plt Count 152, MPV 14.2 H Micro: Microbiology 08/13/22 15:35 Nasal Secretion SARS-CoV-2 Antigen (Rapid) - Final ROS Constitutional Constitutional: Reports systems reviewed and no addt'l complaints, except as documented; Denies headache(s) Eyes Eyes: Denies acute decrease in peripheral vision, blurry vision or change in vision ENT HEENT: Reports systems reviewed and no addt'l complaints, except as documented Cardiovascular Cardiovascular: Denies chest pain or dizziness Respiratory/Chest Respiratory/Chest: Denies cough, dyspnea, dyspnea on exertion, shortness of breath at rest or shortness of breath with exertion Gastrointestinal Gastrointestinal: Denies abdominal pain, diarrhea, nausea or vomiting Genitourinary Genitourinary: Denies abdominal discomfort Musculoskeletal Musculoskeletal: Denies limited range of motion Integumentary Integumentary: Reports systems reviewed and no addt'l complaints, except as documented Neurologic Neurologic: Reports systems reviewed and no addt'l complaints, except as documented Psychiatric Psychiatric: Reports systems reviewed and no addt'l complaints, except as documented Endocrine Endocrinology: Reports systems reviewed and no addt'l complaints, except as documented Hematologic/Lymphatic Hematologic/Lymphatic: Reports systems reviewed and no addt'l complaints, except as documented Allergic/Immunologic Allergic/Immunologic: Reports systems reviewed and no addt'l complaints, except as documented Physical Exam Const alert and oriented x3 General Appearance: cooperative Orientation / Consciousness: awake, oriented to person, oriented to place and oriented to time Exam Limitations: no limitations HEENT normocephalic Head and Scalp: normal to inspection, normocephalic and atraumatic Face and Sinus: normal facial exam Eyes General Eye: normal appearance of both eyes Neck full ROM Chest Chest: symmetrical chest wall rise Resp normal respiratory effort and normal air movement Auscultation: clear to auscultation bilaterally Cardio regular rate, regular rhythm, S1 normal heart sound, S2 normal heart sound, no murmurs, no rub, no gallops and no clicks GI normal to inspection, nondistended, normoactive bowel sounds and non-tender appearance of the vagina normal Narrative: Fundus firm 2 below U Bladder / Kidney Exam: no CVA tenderness Back/Spine normal ROM Extremity normal to inspection and full ROM Skin no rashes or lesions noted Neuro oriented x3, CN's II-XII intact bilaterally and moves all extremities Sensorium / Orientation: awake, alert and oriented to person Motor Exam: clonus absent Deep Tendon Reflexes: Rt Patellar (L4): 2+ and Lt Patellar (L4): 2+ Assessment & Plan (1) Lactating mother: (2) Second degree perineal laceration: (3) Vaginal delivery: (4) Gestational HTN: PLAN: Plan 1) Routine PP care 2) Pain management 3) Vitals stable 4) services 5) Planning D/C home tomorrow
[2022-08-15 01:49] VITALS: BP 129/76; PULSE 94; RESP 16; TEMP 36.3; O2SAT 97
[2022-08-15 08:28] VITALS: BP 117/74; PULSE 84; RESP 16; TEMP 36.9; O2SAT 98
[2022-08-15] MEDS: Acetaminophen 500 MG Tablet 1000 MG PO (08:37)
--- NOTE | 2022-08-15 08:57 | PCM.DC.SUM ---
Providers Date of Admission: 08/13/22 Primary Care Physician: Dr. Waleska Torres DO Reason For Visit: VAG DELIVERY Diagnosis Discharge Diagnosis (1) Lactating mother: Status: Acute Code(s): Z39.1 - Encounter for care and examination of lactating mother (2) Second degree perineal laceration: Status: Acute Code(s): O70.1 - Second degree perineal laceration during delivery (3) Vaginal delivery: Status: Acute Code(s): O80 - Encounter for full-term uncomplicated delivery (4) Gestational HTN: Status: Acute Code(s): O13.9 - Gestational [-induced] hypertension without significant proteinuria, unspecified trimester Plan 1) Routine PP care 2) Pain management 3) Vitals stable 4) services 5) Planning D/C home tomorrow Medications at Discharge Home Medications vit no.95-ferrous fumarate 28 mg-folic acid 800 mcg tablet 1 tab PO DAILY Check with primary doctor 04/16/20 acetaminophen 500 mg tablet 1,000 mg PO Q6H PRN PRN Pain 1-10 Or Fever #0 tabs 08/15/22 Weight / BMI Weight Weight: 202 lb Body Mass Index (BMI) 36.9 ABG / Lab / Microbiology Data Result Diagrams: 08/14/22 05:15 08/13/22 15:20 Microbiology: Microbiology 08/13/22 15:35 Nasal Secretion SARS-CoV-2 Antigen (Rapid) - Final Meaningful Use Info Meaningful Use Diagnoses (Choose all that apply): None applicable Discharge Plan Admission Admit Date/Time: 08/13/22 14:30 Primary Reason for Your Visit: Vaginal delivery Attending Provider: Evelin Car Primary Care Provider: Waleska Torres Discharge Orders/Prescriptions Prescriptions: New acetaminophen 500 mg Tablet 1,000 mg PO Q6H PRN PRN (Reason: Pain 1-10 Or Fever) Qty: 0 0RF Continued PNV cmb#95-ferrous fumarate-FA 1 EACH tablet 1 tab PO DAILY Discontinued iron 45 mg Referrals / Follow Up: Waleska Torres DO [Primary Care Provider] - Evelin Car CNM [Med Staff - Adv Practice Prof] - (follow up in 1 weeks for blood pressure check. 6 week PP visit) Disposition Disposition (needs filled in before D/C Order can be placed): Home, Self Care
--- NOTE | 2022-08-15 09:04 | PCM.PN.OB ---
Subjective Subjective Doing well per patient and nursing staff. Ambulating and taking PO without difficulty. Voiding and passing flatus. Pain controlled. with bottle and supplementing formula. Denies headache, visual changes, chest pain, shortness of breath, leg pain or increased bleeding. Lochia normal. Objective Data Objective Data Vital Signs: Vital Signs Temp Pulse Resp BP Pulse Ox O2 Del Method 98.4 F 84 16 117/74 98 Room Air 08/15/22 08:28 08/15/22 08:28 08/15/22 08:28 08/15/22 08:28 08/15/22 08:28 08/15/22 08:28 Oxygen Delivery Method Room Air Weight: 202 lb Body Mass Index (BMI) 36.9 Intake & Output: Intake and Output for Last 24 Hours 08/13/22 08/14/22 08/15/22 23:59 23:59 22:59 Intake Total 1843.20 / 1843.20 Output Total 250 / 250 1000 / 1000 Balance 1593.20 / 1593.20 -1000 / -1000 Lab / Micro Data Result Diagrams: 08/14/22 05:15 08/13/22 15:20 Micro: Microbiology 08/13/22 15:35 Nasal Secretion SARS-CoV-2 Antigen (Rapid) - Final ROS Constitutional Constitutional: Reports systems reviewed and no addt'l complaints, except as documented; Denies headache(s) Eyes Eyes: Denies acute decrease in peripheral vision, blurry vision or change in vision ENT HEENT: Reports systems reviewed and no addt'l complaints, except as documented Cardiovascular Cardiovascular: Denies chest pain or dizziness Respiratory/Chest Respiratory/Chest: Denies cough, dyspnea, dyspnea on exertion, shortness of breath at rest or shortness of breath with exertion Gastrointestinal Gastrointestinal: Denies abdominal pain, diarrhea, nausea or vomiting Genitourinary Genitourinary: Denies abdominal discomfort Musculoskeletal Musculoskeletal: Denies limited range of motion Integumentary Integumentary: Reports systems reviewed and no addt'l complaints, except as documented Neurologic Neurologic: Reports systems reviewed and no addt'l complaints, except as documented Psychiatric Psychiatric: Reports systems reviewed and no addt'l complaints, except as documented Endocrine Endocrinology: Reports systems reviewed and no addt'l complaints, except as documented Hematologic/Lymphatic Hematologic/Lymphatic: Reports systems reviewed and no addt'l complaints, except as documented Allergic/Immunologic Allergic/Immunologic: Reports systems reviewed and no addt'l complaints, except as documented Physical Exam Const alert and oriented x3 General Appearance: cooperative Orientation / Consciousness: awake, oriented to person, oriented to place and oriented to time Exam Limitations: no limitations HEENT normocephalic Head and Scalp: normal to inspection, normocephalic and atraumatic Face and Sinus: normal facial exam Eyes General Eye: normal appearance of both eyes Neck full ROM Chest Chest: symmetrical chest wall rise Resp normal respiratory effort and normal air movement Auscultation: clear to auscultation bilaterally Cardio regular rate, regular rhythm, S1 normal heart sound, S2 normal heart sound, no murmurs, no rub, no gallops and no clicks GI normal to inspection, nondistended, normoactive bowel sounds and non-tender GI Narrative: fundus firm 2 below u appearance of the vagina normal Narrative: lochia rubra. laceraton well approximated Bladder / Kidney Exam: no CVA tenderness Back/Spine normal ROM Extremity normal to inspection and full ROM Skin no rashes or lesions noted Neuro oriented x3, CN's II-XII intact bilaterally and moves all extremities Sensorium / Orientation: awake, alert and oriented to person Motor Exam: clonus absent Deep Tendon Reflexes: Rt Patellar (L4): 2+ and Lt Patellar (L4): 2+ Assessment & Plan (1) Lactating mother: (2) Second degree perineal laceration: (3) Vaginal delivery: PLAN: Plan 1) Routine PP care 2) Vitals stable 3) Pain management 4) Follow up in 1 week for BP check and 6 week for PP visit
== END 2022-08-15 10:40 | disposition home or self-care (01) | DRG 807 ==
PROVIDERS: Admitting Provider Advanced Practice Midwife; Visit Provider Advanced Practice Midwife
DX: O13.4 Gestational [pregnancy-induced] hypertension without significant proteinuria, complicating childbirth (principal); Z37.0 Single live birth; O48.0 Post-term pregnancy; Z20.822 Contact with and (suspected) exposure to COVID-19; O99.824 Streptococcus B carrier state complicating childbirth; O70.1 Second degree perineal laceration during delivery; Z3A.41 41 weeks gestation of pregnancy; Z87.891 Personal history of nicotine dependence
CPT/HCPCS: 59025; 59050; 82565; 82570; 84156; 84450; 84460; 84550; 85025; 85027; 86850; 86900; 86901; 87426; 99218; J7120; A4216; G0378; J2405